=== PATIENT | female | born 1975 | race Caucasian/White ===

== ENCOUNTER 2016-09-22 14:36 | Observation (INO) | payer OTHER ==
[2016-09-22] MEDS: Sodium Chloride 0.9% 1000 ML 1,000 ML IV SCH ×2 (17:10→23:53)
[2016-09-22] MEDS: MORPHINE SULFATE 2 MG INJ IV PRN (17:10)
[2016-09-22 17:21] LABS: ALBUMIN 4.3 g/dL (3.4-5.0); ALKALINE PHOSPHATASE 60 U/L (46-116); ANION GAP 14.7 MEQ/L (5-15); BILIRUBIN,TOTAL 0.2 mg/dL (0.2-1.0); BLOOD UREA NITROGEN 11 mg/dL (9-20); CHLORIDE 105 mEq/L (98-107); Carbon Dioxide 27.9 mEq/L (21-32); Glucose 91 MG/DL (70-110); LIPASE 208 U/L (73-393); SGOT/AST 20 U/L (15-37); SGPT/ALT 18 U/L (12-78); SODIUM 144 mEq/L (136-145); Total Protein 7.7 gm/dL (6.4-8.2)
[2016-09-22 17:24] LABS: Mean Corpuscular Hemoglobin 28.6 pg (26-32); Mean Platelet Volume 9.5 fl (6-9.5); Platelet Count 295 K/mm3 (150-450); Red Blood Count 4.47 M/mm3 (4.1-5.4); Red Cell Distribution Width 12.8 % (11.5-14.0); White Blood Count 6.2 K/mm3 (4.0-10.5)
[2016-09-22] MEDS: PYRIDIUM 200 MG PO SCH (21:58)
[2016-09-22] MEDS ORDERED: NEURONTIN 300 MG PO SCH (22:00)
[2016-09-22] MEDS ORDERED: Cyclobenzaprine 10 MG PO SCH (22:00)
--- NOTE | 2016-09-22 22:24 | XRAY ---
Indication: Lower abdominal pain for 2 days. Nausea. Frequent urination. Multiple contiguous axial images obtained through the abdomen and pelvis without contrast as ordered. Comparison: February 04, 2015 Lung bases remain clear. Heart is not enlarged. Noncontrasted stomach and bowel loops appear nonobstructed. There remains moderate scattered colonic fecal debris throughout. No free fluid/air. Again previous cholecystectomy, hysterectomy, and reported appendectomy. There is stable subcentimeter urachal cyst versus urinary bladder diverticulum. Remaining liver, pancreas, spleen, adrenal glands, kidneys, ureters, bladder, and aorta appear unremarkable for noncontrast exam. Osseous structures intact. Impression: 1. Again fecal stasis without obstruction. 2. Stable tiny urachal cyst versus bladder diverticulum. 3. No new/acute intra-abdominal/pelvic abnormalities on this noncontrast exam. Comment: Preliminary interpretation was made by C. No critical discrepancy. CTDI 9.12
[2016-09-23] MEDS: MORPHINE SULFATE 2 MG INJ IV PRN (03:38)
[2016-09-23] MEDS: Sodium Chloride 0.9% 1000 ML 1,000 ML IV SCH (06:31)
[2016-09-23 07:22] VITALS: BP 114/68; PULSE 66; O2SAT 98
--- NOTE | 2016-09-23 07:49 | PCM.DS ---
Discharge Summary Date of Admission: 09/22/16 14:42 Admitting Physician: JR PASTOR Consults: Consults on Case 09/22/16 18:58 Consult Surgery ROUTINE Primary Care Provider: JAYLAN GREEN Allergies Allergies povidone-iodine [From Betadine] Allergy (Mild, Verified 09/22/16 14:53) rabeprazole sodium [From Aciphex] Allergy (Mild, Verified 10/13/15 11:23) Hives soap [From Betadine] Allergy (Mild, Verified 09/22/16 14:53) prochlorperazine edisylate [From Compazine] Allergy (Verified 10/13/15 11:23) prochlorperazine maleate [From Compazine] Allergy (Verified 10/13/15 11:23) Hospital Summary - Hospital Course Hospital Course: Chief Complaint Diagnosis ABDOMINAL PAIN Allergies Allergy/AdvReac Type Severity Reaction Status Date / Time povidone-iodine Allergy Mild Verified 09/22/16 14:53 [From Betadine] rabeprazole sodium Allergy Mild Hives Verified 10/13/15 11:23 [From Aciphex] soap [From Betadine] Allergy Mild Verified 09/22/16 14:53 prochlorperazine edisylate Allergy Verified 10/13/15 11:23 [From Compazine] prochlorperazine maleate Allergy Verified 10/13/15 11:23 [From Compazine] Vital Signs (Last 24 hours) Temp Pulse Resp BP Pulse Ox 09/23/16 07:21 97.5 F 66 18 114/68 98 09/23/16 04:00 97.9 F 78 19 122/70 99 09/23/16 00:00 97.9 F 67 18 115/67 96 09/22/16 19:49 98.3 F 82 18 136/80 99 09/22/16 14:58 98 F 91 H 18 132/79 99 Home Medications Medication Instructions Recorded Confirmed Last Taken Type Phenazopyridine HCl 200 mg PO BID 09/22/16 09/22/16 09/22/16 History Current Medications Generic Name Dose Route Start Last Admin Trade Name Freq PRN Reason Stop Dose Admin Cyclobenzaprine HCl 10 mg 09/22/16 22:00 09/22/16 21:51 Cyclobenzaprine 10 Mg PO 10/22/16 21:59 10 mg HS LINDSEY Administration Gabapentin 600 mg 09/22/16 22:00 09/22/16 21:51 Neurontin 300 Mg PO 10/22/16 21:59 600 mg HS LINDSEY Administration Sodium Chloride 1,000 mls @ 150 mls/hr 09/22/16 17:00 09/23/16 06:31 Sodium Chloride 0.9% 1000 Ml IV 10/22/16 16:59 150 mls/hr .Q6H40M LINDSEY Administration Morphine Sulfate 2 mg 09/22/16 16:56 09/23/16 03:38 Morphine Sulfate 2 Mg Inj IV 09/27/16 16:55 2 mg Q2H PRN PRN Administration PAIN Phenazopyridine HCl 200 mg 09/22/16 22:00 09/22/16 21:58 Pyridium 200 Mg PO 09/26/16 22:01 Not Given BID LINDSEY Intake & Output (Last 24 hours) 09/20/16 09/21/16 09/22/16 09/23/16 11:59 11:59 11:59 11:59 Intake Total 1577 Balance 1577 Weight 57.062 kg Laboratory Results (Last 24 hours) 09/22/16 09/22/16 09/22/16 17:00 17:00 17:00 WBC 6.2 RBC 4.47 Hgb 12.8 Hct 39.8 MCV 89.0 MCH 28.6 MCHC 32.2 RDW 12.8 Plt Count 295 MPV 9.5 Sodium 144 Potassium 4.0 Chloride 105 Carbon Dioxide 27.9 Anion Gap 14.7 BUN 11 Creatinine 0.78 Estimated GFR > 60 Glucose 91 Calcium 9.0 Total Bilirubin 0.2 AST 20 ALT 18 Alkaline Phosphatase 60 Serum Total Protein 7.7 Albumin 4.3 Amylase 69 Lipase 208 Orders (Last 24 hours) Category Date Time Status Admission/Status Order ROUTINE Care 09/22/16 14:42 Active Consult Surgery ROUTINE Cons 09/22/16 18:58 Active Regular Diet Diet 09/22/16 Dinner Completed Regular Diet Diet 09/23/16 Breakfast Active ABDOMEN AND PELVIS W/0 CONTRAS [CT] Routine Exams 09/22/16 16:58 Completed AMYLASE Routine Lab 09/22/16 17:00 Completed CBC Routine Lab 09/22/16 17:00 Completed CMP Routine Lab 09/22/16 17:00 Completed LIPASE Routine Lab 09/22/16 17:00 Completed Cyclobenzaprine HCl 10 mg [Cyclobenzaprine 10 MG] Med 09/22/16 22:00 Active 10 mg PO HS Gabapentin 300 mg [Neurontin 300 mg] Med 09/22/16 22:00 Active 600 mg PO HS Morphine Sulfate 2 mg Inj Med 09/22/16 16:56 Active 2 mg IV Q2H PRN PRN NaCl 0.9% 1000 ml [Sodium Chloride 0.9% 1000 ML] 1,000 Med 09/22/16 17:00 Active ml IV 150 mls/hr Phenazopyridine HCl 200 mg [Pyridium 200 mg] Med 09/22/16 22:00 Active 200 mg PO BID Patient Care Notes (Last 24 hours) 09/23/16 00:11 Nursing Note by Karen Chacko Dr. here to see patient. Reviewed chart, decided nothing immediate needed. Dr. Jovel was also informed that patient has an appointment with a surgeon in [place] on Oct.04 and if she needed surgery she would prefer to go there. Initialized on 09/23/16 00:11 - END OF NOTE 09/22/16 18:59 Nursing Note by [place] Brian patient facesheet and copy of ct report sent to OR as dr. jovel is in OR performing a case at the moment. Initialized on 09/22/16 18:59 - END OF NOTE 09/22/16 18:50 Nursing Note by [place] Brian dr. updated via phone of CT results. received orders to consult surgeon and make patient npo Initialized on 09/22/16 18:50 - END OF NOTE - Vitals & Intake/Output Vital Signs: Vital Signs Temperature 97.5 F 09/23/16 07:21 Pulse Rate 66 09/23/16 07:21 Respiratory Rate 18 09/23/16 07:21 Blood Pressure 114/68 09/23/16 07:21 O2 Sat by Pulse Oximetry 98 09/23/16 07:21 Intake & Output: Intake & Output 09/20/16 09/21/16 09/22/16 09/23/16 11:59 11:59 11:59 11:59 Intake Total 1577 Balance 1577 Weight 57.062 kg - Lab Result Diagrams: 09/22/16 17:00 09/22/16 17:00 Lab Results-Last 24 Hrs: Lab Results-Last 24 Hours 09/22/16 09/22/16 09/22/16 Range/Units 17:00 17:00 17:00 WBC 6.2 (4.0-10.5) K/mm3 RBC 4.47 (4.1-5.4) M/mm3 Hgb 12.8 (12.0-16.0) gm/dl Hct 39.8 (35-47) % MCV 89.0 (78-100) fl MCH 28.6 (26-32) pg MCHC 32.2 (32-36) g/dl RDW 12.8 (11.5-14.0) % Plt Count 295 (150-450) K/mm3 MPV 9.5 (6-9.5) fl Sodium 144 (136-145) mEq/L Potassium 4.0 (3.5-5.1) mEq/L Chloride 105 (98-107) mEq/L Carbon Dioxide 27.9 (21-32) mEq/L Anion Gap 14.7 (5-15) MEQ/L BUN 11 (9-20) mg/dL Creatinine 0.78 (0.55-1.30) mg/dl Estimated GFR > 60 ML/MIN Glucose 91 (70-110) MG/DL Calcium 9.0 (8.5-10.1) mg/dL Total Bilirubin 0.2 (0.2-1.0) mg/dL AST 20 (15-37) U/L ALT 18 (12-78) U/L Alkaline Phosphatase 60 (46-116) U/L Serum Total Protein 7.7 (6.4-8.2) gm/dL Albumin 4.3 (3.4-5.0) g/dL Amylase 69 (25-115) U/L Lipase 208 (73-393) U/L - Radiology Exams Ordered Rad Exams-Entire Visit: Radiology Procedures Category Date Time Status ABDOMEN AND PELVIS W/0 CONTRAS [CT] Routine Exams 09/22/16 16:58 Completed Discharge Exam General Appearance: no apparent distress, alert Neurologic Exam: alert, oriented x 3, cooperative, normal mood/affect, nml cerebellar function, sensation nml, No motor deficits Skin Exam: normal color, warm, dry Eye Exam: PERRL, EOMI, eyes nml inspection Ears, Nose, Throat Exam: normal ENT inspection, pharynx normal, moist mucous membranes Neck Exam: normal inspection, non-tender, supple, full range of motion Respiratory Exam: normal breath sounds, lungs clear, No respiratory distress Cardiovascular Exam: regular rate/rhythm, normal heart sounds Gastrointestinal/Abdomen Exam: soft, No tenderness, No mass Extremity Exam: normal inspection, normal range of motion Back Exam: normal inspection, normal range of motion, No CVA tenderness, No vertebral tenderness Pelvic Exam: deferred Rectal Exam: deferred Final Diagnosis/Problem List - Final Discharge Diagnosis/Problem (1) Lower abdominal adhesions Current Visit: Yes Status: Chronic Priority: High Assessment & Plan: Chief Complaint Diagnosis ABDOMINAL PAIN Allergies Allergy/AdvReac Type Severity Reaction Status Date / Time povidone-iodine Allergy Mild Verified 09/22/16 14:53 [From Betadine] rabeprazole sodium Allergy Mild Hives Verified 10/13/15 11:23 [From Aciphex] soap [From Betadine] Allergy Mild Verified 09/22/16 14:53 prochlorperazine edisylate Allergy Verified 10/13/15 11:23 [From Compazine] prochlorperazine maleate Allergy Verified 10/13/15 11:23 [From Compazine] Vital Signs (Last 24 hours) Temp Pulse Resp BP Pulse Ox 09/23/16 07:21 97.5 F 66 18 114/68 98 09/23/16 04:00 97.9 F 78 19 122/70 99 09/23/16 00:00 97.9 F 67 18 115/67 96 09/22/16 19:49 98.3 F 82 18 136/80 99 09/22/16 14:58 98 F 91 H 18 132/79 99 Home Medications Medication Instructions Recorded Confirmed Last Taken Type Phenazopyridine HCl 200 mg PO BID 09/22/16 09/22/16 09/22/16 History Current Medications Generic Name Dose Route Start Last Admin Trade Name Freq PRN Reason Stop Dose Admin Cyclobenzaprine HCl 10 mg 09/22/16 22:00 09/22/16 21:51 Cyclobenzaprine 10 Mg PO 10/22/16 21:59 10 mg HS LINDSEY Administration Gabapentin 600 mg 09/22/16 22:00 09/22/16 21:51 Neurontin 300 Mg PO 10/22/16 21:59 600 mg HS LINDSEY Administration Sodium Chloride 1,000 mls @ 150 mls/hr 09/22/16 17:00 09/23/16 06:31 Sodium Chloride 0.9% 1000 Ml IV 10/22/16 16:59 150 mls/hr .Q6H40M LINDSEY Administration Morphine Sulfate 2 mg 09/22/16 16:56 09/23/16 03:38 Morphine Sulfate 2 Mg Inj IV 09/27/16 16:55 2 mg Q2H PRN PRN Administration PAIN Phenazopyridine HCl 200 mg 09/22/16 22:00 09/22/16 21:58 Pyridium 200 Mg PO 09/26/16 22:01 Not Given BID LINDSEY Intake & Output (Last 24 hours) 09/20/16 09/21/16 09/22/16 09/23/16 11:59 11:59 11:59 11:59 Intake Total 1577 Balance 1577 Weight 57.062 kg Laboratory Results (Last 24 hours) 09/22/16 09/22/16 09/22/16 17:00 17:00 17:00 WBC 6.2 RBC 4.47 Hgb 12.8 Hct 39.8 MCV 89.0 MCH 28.6 MCHC 32.2 RDW 12.8 Plt Count 295 MPV 9.5 Sodium 144 Potassium 4.0 Chloride 105 Carbon Dioxide 27.9 Anion Gap 14.7 BUN 11 Creatinine 0.78 Estimated GFR > 60 Glucose 91 Calcium 9.0 Total Bilirubin 0.2 AST 20 ALT 18 Alkaline Phosphatase 60 Serum Total Protein 7.7 Albumin 4.3 Amylase 69 Lipase 208 Orders (Last 24 hours) Category Date Time Status Admission/Status Order ROUTINE Care 09/22/16 14:42 Active Consult Surgery ROUTINE Cons 09/22/16 18:58 Active Regular Diet Diet 09/22/16 Dinner Completed Regular Diet Diet 09/23/16 Breakfast Active ABDOMEN AND PELVIS W/0 CONTRAS [CT] Routine Exams 09/22/16 16:58 Completed AMYLASE Routine Lab 09/22/16 17:00 Completed CBC Routine Lab 09/22/16 17:00 Completed CMP Routine Lab 09/22/16 17:00 Completed LIPASE Routine Lab 09/22/16 17:00 Completed Cyclobenzaprine HCl 10 mg [Cyclobenzaprine 10 MG] Med 09/22/16 22:00 Active 10 mg PO HS Gabapentin 300 mg [Neurontin 300 mg] Med 09/22/16 22:00 Active 600 mg PO HS Morphine Sulfate 2 mg Inj Med 09/22/16 16:56 Active 2 mg IV Q2H PRN PRN NaCl 0.9% 1000 ml [Sodium Chloride 0.9% 1000 ML] 1,000 Med 09/22/16 17:00 Active ml IV 150 mls/hr Phenazopyridine HCl 200 mg [Pyridium 200 mg] Med 09/22/16 22:00 Active 200 mg PO BID Patient Care Notes (Last 24 hours) 09/23/16 00:11 Nursing Note by Karen Chacko Dr. here to see patient. Reviewed chart, decided nothing immediate needed. Dr. Jovel was also informed that patient has an appointment with a surgeon in [place] on Oct.04 and if she needed surgery she would prefer to go there. Initialized on 09/23/16 00:11 - END OF NOTE 09/22/16 18:59 Nursing Note by India Brian patient facesheet and copy of ct report sent to OR as dr. jovel is in OR performing a case at the moment. Initialized on 09/22/16 18:59 - END OF NOTE 09/22/16 18:50 Nursing Note by [place] Brian dr. updated via phone of CT results. received orders to consult surgeon and make patient npo Initialized on 09/22/16 18:50 - END OF NOTE Patient pain is improved with IV morphine. Patient is scheduled for laparoscopic intervention by the surgeon in [place] tenderness from today. Has CAT scan of the abdomen is negative. Patient will be discharged today with oxymorphone 5 mg 3 times a day when necessary for pain and follow-up with her surgeon as per her appointment. (2) Abdominal pain Current Visit: Yes Status: Resolved - Discharge Discharge Date: 09/23/16 Disposition: Home, Self-Care Condition: Stable Prescriptions: New Oxymorphone HCl 5 mg PO TID #20 tablet Continue Esomeprazole Magnesium [Nexium] 40 mg PO DAILY Cyclobenzaprine HCl 10 mg [Cyclobenzaprine 10 MG] 10 mg PO HS Gabapentin [Neurontin] 600 mg PO HS Phenazopyridine HCl 200 mg PO BID Follow up with: JAYLAN GREEN MD [Primary Care Provider] - 1 Week
[2016-09-23] MEDS: PYRIDIUM 200 MG PO SCH (08:37)
[2016-09-23] MEDS ORDERED: NON-FORMULARY ITEM (Esomeprazole Magnesium [Nexium] 40 MG) PO SCH (10:00)
[2016-09-23] MEDS ORDERED: Protonix 40MG Tablet PO SCH (10:00)
== END 2016-09-23 12:15 | disposition home or self-care (01) ==
LOC: MED SURG 14:42
PROVIDERS: ADMIT General Practice; ATTEND General Practice
DX: K66.0 Peritoneal adhesions (postprocedural) (postinfection) (principal); K21.9 Gastro-esophageal reflux disease without esophagitis; M41.9 Scoliosis, unspecified
CPT/HCPCS: 36415; 74176; 80053; 82150; 83690; 85027; G0378; J2270

== ENCOUNTER 2017-05-14 09:51 | Emergency (ER) | payer OTHER ==
--- NOTE | 2017-05-14 11:26 | ERPHSYRPT ---
- History of Present Illness Time Seen by Provider: 05/14/17 11:21 Source: patient Exam Limitations: no limitations Patient Subjective Stated Complaint: pt here for numbness to both legs that started today, states they feel heavy, pressure to void, and pain to lower abd which has been going on for 5 months now. and pt states has surgery soon for mass to left side, Triage Nursing Assessment: pt walked in crying, resp easy, skin w/d pink. abd soft, moves all ext well Physician History: The patient is a 42-year-old female who is a poor historian. She comes in complaining of lower abdominal pain for 6 months. She states that she had heavy legs yesterday. She states that they were numb as well. She also states that she can feel her legs. She has been to several ERs to investigate her various problems. She went to [facility] and they told her the abdominal pain was due to adhesions as result of the abdominal surgery she's had. She went to her GI doctor in [place] who told her she did not have adhesions. She then went to [facility] in [place] who said that she had likely adhesions. The CT scan in [place] showed moderate to large volume of colonic stool as well as a circumscribed nodular soft tissue density near surgical clips in the right hemipelvis that may be postoperative although the differential diagnosis included lymphadenopathy and malignancy. This CT report was transcribed by Dr. Koo. The patient has seen her local doctor. She is due to see a surgeon for possible adhesions on May 21. Her past medical history significant for hysterectomy, cholecystectomy, chronic abdominal pain. Timing/Duration: other (6 months) Severity: mild Modifying Factors: Improves With: nothing Associated Symptoms: abdominal pain Allergies/Adverse Reactions: povidone-iodine [From Betadine] Allergy (Mild, Verified 05/14/17 10:13) rabeprazole sodium [From Aciphex] Allergy (Mild, Verified 05/14/17 10:13) Hives soap [From Betadine] Allergy (Mild, Verified 05/14/17 10:13) prochlorperazine edisylate [From Compazine] Allergy (Verified 05/14/17 10:13) prochlorperazine maleate [From Compazine] Allergy (Verified 05/14/17 10:13) Home Medications: Esomeprazole Magnesium [Nexium] 40 mg PO DAILY 04/20/14 [History] Cyclobenzaprine HCl 10 mg [Cyclobenzaprine 10 MG] 10 mg PO HS 08/16/14 [ History] Gabapentin [Neurontin] 800 mg PO HS 01/14/15 [History] Hx Tetanus, Diphtheria Vaccination/Date Given: No Hx Influenza Vaccination/Date Given: No Hx Pneumococcal Vaccination/Date Given: No Immunizations Up to Date: Yes - Review of Systems Constitutional: No Fever, No Chills Eyes: No Symptoms Ears, Nose, & Throat: No Symptoms Respiratory: No Cough, No Dyspnea Cardiac: No Chest Pain, No Edema, No Syncope Abdominal/Gastrointestinal: Abdominal Pain Genitourinary Symptoms: No Dysuria Musculoskeletal: No Back Pain, No Neck Pain Skin: No Rash Neurological: Parasthesia Psychological: No Symptoms Endocrine: No Symptoms Hematologic/Lymphatic: No Symptoms Immunological/Allergic: No Symptoms All Other Systems: Reviewed and Negative - Past Medical History Pertinent Past Medical History: Yes Neurological History: Migraines ENT History: Other Cardiac History: No Pertinent History Respiratory History: Bronchitis Endocrine Medical History: No Pertinent History Musculoskeletal History: Arthritis, Fibromyalgia, Other GI Medical History: GERD History: No Pertinent History Psycho-Social History: No Pertinent History Female Reproductive Disorders: No Pertinent History Other Medical History: ESOPHAGUS NEEDS DILATED EVERY ONCE IN AWHILE, , LORDOSIS , SCOLIOSIS, - Past Surgical History Past Surgical History: Yes Neuro Surgical History: No Pertinent History Cardiac: No Pertinent History Respiratory: No Pertinent History Gastrointestinal: Cholecystectomy, Colon Resection Genitourinary: No Pertinent History Musculoskeletal: Orthopedic Surgery Female Surgical History: Section, Hysterectomy Other Surgical History: esophageal dilitation, rotator cuff repair - Social History Smoking Status: Never smoker Exposure to second hand smoke: No Drug Use: none Patient Lives Alone: No Significant Family History: other (immune diseases such as lupus,etc.) - Female History Hx Last Menstrual Period: hyster Hx Now: No - Nursing Vital Signs Nursing Vital Signs: Initial Vital Signs Temperature 98.6 F 05/14/17 10:08 Pulse Rate 86 05/14/17 10:08 Respiratory Rate 18 05/14/17 10:08 Blood Pressure 176/107 05/14/17 10:08 O2 Sat by Pulse Oximetry 98 05/14/17 10:08 Pain Scale Pain Intensity 5 - Physical Exam General Appearance: no apparent distress, alert Eye Exam: PERRL/EOMI, eyes nml inspection Ears, Nose, Throat Exam: normal ENT inspection, TMs normal, pharynx normal, moist mucous membranes Neck Exam: normal inspection, non-tender, supple, full range of motion Respiratory Exam: normal breath sounds, lungs clear, No respiratory distress Cardiovascular Exam: regular rate/rhythm, normal heart sounds, normal peripheral pulses Gastrointestinal/Abdomen Exam: soft, normal bowel sounds Pelvic Exam: not done Rectal Exam: not done Back Exam: normal inspection, normal range of motion, No CVA tenderness, No vertebral tenderness Extremity Exam: normal inspection, normal range of motion, pelvis stable Neurologic Exam: alert, oriented x 3, cooperative, normal mood/affect, nml cerebellar function, nml station & gait, sensation nml, No motor deficits Skin Exam: normal color, warm, dry, No rash Lymphatic Exam: No adenopathy SpO2 Interpretation: normal SpO2: 100 Oxygen Delivery: Room Air - Radiology Exams Abdomen X-ray Interpretation: Negative (per DR Cano.) Ordered Tests: Active Orders 24 hr Category Date Time Status KUB Stat Exams 05/14/17 11:28 Completed CBC W DIFF Stat Lab 05/14/17 11:38 Completed CMP Stat Lab 05/14/17 11:38 Completed UA W/RFX UR CULTURE Stat Lab 05/14/17 12:20 Completed Lab/Rad Data: Laboratory Result Diagrams 05/14/17 11:38 05/14/17 11:38 Laboratory Results 05/14/17 05/14/17 05/14/17 Range/Units 12:20 11:38 11:38 WBC 6.6 (4.0-10.5) K/mm3 RBC 4.43 (4.1-5.4) M/mm3 Hgb 12.9 (12.0-16.0) gm/dl Hct 39.2 (35-47) % MCV 88.5 (78-100) fl MCH 29.1 (26-32) pg MCHC 32.9 (32-36) g/dl RDW 12.9 (11.5-14.0) % Plt Count 297 (150-450) K/mm3 MPV 8.9 (6-9.5) fl Gran % 68.9 H (36.0-66.0) % Lymphocytes % 21.2 L (24.0-44.0) % Monocytes % 8.9 (0.0-12.0) % Eosinophils % 0.8 (0.00-5.0) % Basophils % 0.2 (0.0-0.4) % Basophils # 0.01 (0-0.4) Sodium 144 (136-145) mEq/L Potassium 3.9 (3.5-5.1) mEq/L Chloride 107 (98-107) mEq/L Carbon Dioxide 26.6 (21-32) mEq/L Anion Gap 14.2 (5-15) MEQ/L BUN 7 L (9-20) mg/dL Creatinine 0.75 (0.55-1.30) mg/dl Estimated GFR > 60 ML/MIN Glucose 94 (70-110) MG/DL Calcium 9.1 (8.5-10.1) mg/dL Total Bilirubin 0.40 (0.2-1.0) mg/dL AST 13 L (15-37) U/L ALT 29 (12-78) U/L Alkaline Phosphatase 66 (46-116) U/L Serum Total Protein 7.8 (6.4-8.2) gm/dL Albumin 4.7 (3.4-5.0) g/dL Ur Collection Type CLEAN CATCH Urine Color YELLOW (YELLOW) Urine Appearance CLEAR (CLEAR) Urine pH 5.0 (5-6) Ur Specific [place] 1.020 (1.005-1.025) Urine Protein NEGATIVE (Negative) Urine Ketones NEGATIVE (NEGATIVE) Urine Blood NEGATIVE (0-5) Mickey/ul Urine Nitrite NEGATIVE (NEGATIVE) Urine Bilirubin NEGATIVE (NEGATIVE) Urine Urobilinogen NORMAL (0-1) mg/dL Ur Leukocyte Esterase NEGATIVE (NEGATIVE) Urine Glucose NEGATIVE (NEGATIVE) mg/dL Specimen Received 05-14 1200 - Progress Progress: unchanged Counseled pt/family regarding: lab results, diagnosis, need for follow-up, rad results - Departure Time of Disposition: 12:24 Departure Disposition: Home Clinical Impression: Chronic abdominal pain Condition: Stable Critical Care Time: No Referrals: JAYLAN GREEN MD [Primary Care Provider] - Additional Instructions: You have chronic abdominal pain. Your laboratory and imaging studies were all normal. Take Tylenol and ibuprofen as needed for pain. Follow-up as scheduled with the surgeon, Dr. Jovel.
[2017-05-14 11:56] LABS: BASOPHIL % 0.2 % (0.0-0.4); Eosinophil % 0.8 % (0.00-5.0); Granulocytes % 68.9 % (36.0-66.0); Lymphocytes % 21.2 % (24.0-44.0); Mean Cell Volume 88.5 fl (78-100); Mean Corpuscular Hemoglobin 29.1 pg (26-32); Mean Platelet Volume 8.9 fl (6-9.5); Monocytes % 8.9 % (0.0-12.0); Platelet Count 297 K/mm3 (150-450); Red Blood Count 4.43 M/mm3 (4.1-5.4); Red Cell Distribution Width 12.9 % (11.5-14.0); White Blood Count 6.6 K/mm3 (4.0-10.5)
--- NOTE | 2017-05-14 12:12 | XRAY ---
Indication: Lower abdominal pain. Comparison: July 16, 2013. KUB nonacute and nonobstructed again with previous cholecystectomy. New pelvic surgical clips. Solid organs and osseous structures unremarkable. Impression: Negative KUB.
[2017-05-14 12:14] LABS: ALBUMIN 4.7 g/dL (3.4-5.0); ALKALINE PHOSPHATASE 66 U/L (46-116); ANION GAP 14.2 MEQ/L (5-15); BLOOD UREA NITROGEN 7 mg/dL (9-20); CHLORIDE 107 mEq/L (98-107); Carbon Dioxide 26.6 mEq/L (21-32); Glucose 94 MG/DL (70-110); Potassium 3.9 mEq/L (3.5-5.1); SGOT/AST 13 U/L (15-37); SGPT/ALT 29 U/L (12-78); SODIUM 144 mEq/L (136-145); Total Protein 7.8 gm/dL (6.4-8.2)
[2017-05-14 12:20] LABS: ADD URINE CULTURE? NO (NO); Bilirubin NEGATIVE (NEGATIVE); Blood NEGATIVE Ery/ul (0-5); COMPLETE URINE MICROSCOPIC? NO; Collection Type CLEAN CATCH; Glucose NEGATIVE (NEGATIVE); Leukocyte Esterase NEGATIVE (NEGATIVE)
[2017-05-14 12:56] VITALS: BP 160/90; PULSE 90; O2SAT 96
== END 2017-05-14 12:56 | disposition home or self-care (01) ==
LOC: ED 09:51
DX: R10.9 Unspecified abdominal pain (principal); G89.29 Other chronic pain; R20.0 Anesthesia of skin; Z79.899 Other long term (current) drug therapy
CPT/HCPCS: 36415; 74000; 80053; 81002; 85025; 99284

== ENCOUNTER 2017-06-06 07:18 | Day surgery (SDC) | payer OTHER ==
[~2017-06-06 07:18] MED LIST: Lactated Ringers 1,000 ML IV SCH
[2017-06-06] MEDS ORDERED: DIPRIVAN 200 MG/20 ML IV ONE (07:19)
[2017-06-06] MEDS ORDERED: Versed 2 MG/2 ML Injection IV ONE (07:19)
[2017-06-06] MEDS ORDERED: Lactated Ringers 1,000 ML IV ONE ×3 (08:10→10:50)
[2017-06-06] MEDS ORDERED: MEFOXIN 2 GM PREMIX** 2 GM/50 ML ML IV ONE (08:38)
[2017-06-06 08:59] LABS: ALBUMIN 4.6 g/dL (3.4-5.0); ALKALINE PHOSPHATASE 67 U/L (46-116); ANION GAP 13.1 MEQ/L (5-15); BLOOD UREA NITROGEN 8 mg/dL (9-20); CHLORIDE 105 mEq/L (98-107); Carbon Dioxide 28.8 mEq/L (21-32); Direct Bilirubin 0.09 MG/DL (0.0-0.2); Glucose 93 MG/DL (70-110); LIPASE 143 U/L (73-393); SGOT/AST 16 U/L (15-37); SGPT/ALT 16 U/L (12-78); SODIUM 143 mEq/L (136-145); Total Protein 7.9 gm/dL (6.4-8.2)
[2017-06-06 09:00] LABS: Mean Cell Volume 89.4 fl (78-100); Mean Platelet Volume 9.1 fl (6-9.5); Platelet Count 333 K/mm3 (150-450); Red Blood Count 4.62 M/mm3 (4.1-5.4); Red Cell Distribution Width 13.1 % (11.5-14.0); White Blood Count 5.5 K/mm3 (4.0-10.5)
[2017-06-06 12:33] VITALS: O2SAT 100
[2017-06-06 12:34] VITALS: BP 134/84; PULSE 75
--- NOTE | 2017-06-07 08:06 | OP ---
PROCEDURE DATE/TIME: 06/06/2017 1025 PREOPERATIVE DIAGNOSES: 1) Abdominal pain. 2) Weight loss. POSTOPERATIVE DIAGNOSES: 1) Gastric polyps. 2) Mild gastritis. 3) Trace hiatal hernia. 4) Diverticulosis. PROCEDURES: 1) EGD with biopsy. 2) Colonoscopy. PROCEDURE PERFORMED BY: Vanda Jovel M.D. ANESTHESIA: MAC. ESTIMATED BLOOD LOSS: Minimal. COMPLICATIONS: None. SPECIMENS: 1) Antral biopsy. 2) Gastric polyp biopsy. HISTORY: This is a 42 year-old female who presents for EGD and colonoscopy due to symptoms of abdominal pain and weight loss. She has had significant pelvic surgery in the past including hysterectomy and unilateral salpingo-oophorectomy which the patient states was intended to be bilateral. However, she had an exploratory surgery and ovarian tissue was found on the right side so she had this resected as well. Since then she has continued to have abdominal pain. She has also lost weight and due to all these symptoms she was recommended for EGD and colonoscopy and so she was referred for consultation. All risks, benefits, alternatives regarding these procedures have been discussed with the patient in detail and she understands, agreed and would like to proceed. I did see the patient preoperatively as well. We reviewed her H&P. We also reviewed her CT scan results which she will need another CT scan to follow a small right seroma versus cyst lesion but we will start with the scope to see if there is anything from a GI standpoint that can improve her pain. The patient agrees. DESCRIPTION OF PROCEDURE: She was taken for the procedure. The patient was laid in the left lateral decubitus position. A complete time out was performed. MAC anesthesia introduced. The scope was then introduced into the mouth, oropharynx carefully into the esophagus, stomach and duodenum. The duodenum is normal. In the stomach there is mild gastritis. There are a few very small gastric polyps and these all appeared benign and very minor. On retroflex view there is a very tiny almost physiologic hiatal hernia this is very mild. We did take antral biopsies and then biopsies of the gastric polyp and sent these to pathology this was done with cold forceps. All sites were hemostatic. The scope was then carefully withdrawn. The esophagus looked normal. The patient was repositioned for colonoscopy. First a rectal exam was done and then the scope was inserted and carefully guided to the level of the cecum. The patient did have some tortuosity in the sigmoid colon and descending colon. She did have mild diverticulosis. I did not find any other issues in the colon. The ileocecal valve and appendiceal orifice was visualized. The scope was then carefully withdrawn. The patient did have some liquid stool throughout her colon which was suctioned and irrigated as thoroughly as possible. A smaller flat lesion could be missed due to the prep and then scope was completely removed. The patient tolerated the procedure very well. There were no immediate complications. At this time our plan is to start her on Protonix due to the mild gastritis. We will repeat the EGD in approximately one year since she had gastric polyp. We will repeat her colonoscopy in approximately five years sooner should she have new symptoms and we will also plan to continue to work up her abdominal pain as well as repeat her CT scan and consider a pelvic ultrasound which we will discuss at her next appointment.
== END 2017-06-06 12:35 | disposition home or self-care (01) ==
LOC: SDC 07:18
PROVIDERS: ATTEND Surgery
PROC: 0DB68ZX Excision of Stomach, Via Natural or Artificial Opening Endoscopic, Diagnostic (ICD-10-PCS; principal; 2017-06-06)
PROC: 0DJD8ZZ Inspection of Lower Intestinal Tract, Via Natural or Artificial Opening Endoscopic (ICD-10-PCS; 2017-06-06)
DX: K31.7 Polyp of stomach and duodenum (principal); R63.4 Abnormal weight loss; K44.9 Diaphragmatic hernia without obstruction or gangrene; K57.90 Diverticulosis of intestine, part unspecified, without perforation or abscess without bleeding; K29.70 Gastritis, unspecified, without bleeding
CPT/HCPCS: 00740; 00810; 36415; 80048; 80076; 82150; 83690; 85027; 88305; J0694; J2250; J2704

== ENCOUNTER 2017-07-26 20:16 | Emergency (ER) | payer OTHER ==
[2017-07-26] MEDS ORDERED: Sodium Chloride 0.9% 1000 ML 1,000 ML IV STA (20:58)
[2017-07-26] MEDS ORDERED: PROVENTIL 2.5 MG/3 ML NEB IH ONE ×2 (21:02→21:12)
[2017-07-26] MEDS ORDERED: TYLENOL 325 MG PO ONE (21:02)
[2017-07-26] MEDS ORDERED: Sodium Chloride 0.9% 1000 ML 1,000 ML ONE (21:05)
[2017-07-26] MEDS ORDERED: TYLENOL 325 MG ONE (21:05)
[2017-07-26 21:07] LABS: BASOPHIL % 0.4 % (0.0-0.4); Eosinophil % 2.4 % (0.00-5.0); Granulocytes % 47.3 % (36.0-66.0); Lymphocytes % 40.1 % (24.0-44.0); Mean Platelet Volume 9.1 fl (6-9.5); Monocytes % 9.8 % (0.0-12.0); Platelet Count 345 K/mm3 (150-450); Red Blood Count 4.27 M/mm3 (4.1-5.4); Red Cell Distribution Width 12.8 % (11.5-14.0)
--- NOTE | 2017-07-26 21:08 | ERPHSYRPT ---
- History of Present Illness Time Seen by Provider: 07/26/17 20:24 Source: patient, family (boyfriend) Patient Subjective Stated Complaint: CP STARTING ON SUNDAY. HAS BEEN BEING TREATED FOR BRONCHITIS.. BEEN ON ANTIBIOTIC Triage Nursing Assessment: ALERT AND ORIENTD WITH C/O CVP SINCE SUNDAY.. HAS BEEN ON ANTIBIOTIC. LUNGS CLEAR PAIN WITH DEEP INSPIRATION AND PALPATION TO MIDCHEST. DENIES SWELLING. Physician History: CC: left chest pain Hx: 42 y/o patient with hx of GI issues. She has been coughing since last week. Now left chest pain. Worse with breath or touch or movement. Still having fevers. No hx of venous thromboembolic disease. No hx of heart disease. She is taking amoxil. Pain moderate. Timing/Duration: week(s) (1) Severity: moderate Allergies/Adverse Reactions: povidone-iodine [From Betadine] Allergy (Mild, Verified 07/26/17 20:29) rabeprazole sodium [From Aciphex] Allergy (Mild, Verified 07/26/17 20:29) Hives soap [From Betadine] Allergy (Mild, Verified 07/26/17 20:29) prochlorperazine edisylate [From Compazine] Allergy (Verified 07/26/17 20:29) ibuprofen Adverse Reaction (Verified 07/26/17 20:59) DOES NOT TAKE DUE TO STOMACHE PROBLEMS Home Medications: Cyclobenzaprine HCl 10 mg [Cyclobenzaprine 10 MG] 10 mg PO HS 08/16/14 [ History] Gabapentin [Neurontin] 800 mg PO HS 01/14/15 [History] Cyclobenzaprine HCl [Flexeril] 5 mg PO DAILY 06/04/17 [History] Hx Tetanus, Diphtheria Vaccination/Date Given: No Hx Influenza Vaccination/Date Given: No Hx Pneumococcal Vaccination/Date Given: No Immunizations Up to Date: Yes - Review of Systems Constitutional: Fever, Chills, Fatigue, Malaise Eyes: No Symptoms Ears, Nose, & Throat: No Symptoms Respiratory: Cough, No Dyspnea Cardiac: Chest Pain (left), No Edema Abdominal/Gastrointestinal: No Nausea, No Vomiting, No Diarrhea Skin: No Rash Neurological: No Headache All Other Systems: Reviewed and Negative - Past Medical History Pertinent Past Medical History: Yes Neurological History: Migraines ENT History: Other Cardiac History: No Pertinent History Respiratory History: No Pertinent History Endocrine Medical History: No Pertinent History Musculoskeletal History: Arthritis, Fibromyalgia, Other GI Medical History: GERD History: No Pertinent History Psycho-Social History: No Pertinent History Female Reproductive Disorders: No Pertinent History Other Medical History: ESOPHAGUS NEEDS DILATED EVERY ONCE IN AWHILE, , LORDOSIS , SCOLIOSIS,. Unknown GI issue planning [facility] - Past Surgical History Past Surgical History: Yes Neuro Surgical History: No Pertinent History Cardiac: No Pertinent History Respiratory: No Pertinent History Gastrointestinal: Cholecystectomy, Colon Resection Genitourinary: No Pertinent History Musculoskeletal: Orthopedic Surgery Female Surgical History: Section, Hysterectomy Other Surgical History: esophageal dilitation, rotator cuff repair - Social History Smoking Status: Never smoker Exposure to second hand smoke: No Drug Use: none Patient Lives Alone: No Significant Family History: other (immune diseases such as lupus,etc.) - Female History Hx Now: No - Nursing Vital Signs Nursing Vital Signs: Initial Vital Signs Temperature 97.8 F 07/26/17 20:22 Pulse Rate 70 07/26/17 20:22 Respiratory Rate 20 07/26/17 20:22 Blood Pressure 146/94 07/26/17 20:22 O2 Sat by Pulse Oximetry 97 07/26/17 20:22 Pain Scale Pain Intensity 8 - Physical Exam General Appearance: alert Eye Exam: PERRL/EOMI Ears, Nose, Throat Exam: normal ENT inspection, moist mucous membranes Neck Exam: normal inspection, non-tender, supple Respiratory Exam: crackles/rales (faint left lower) Cardiovascular Exam: regular rate/rhythm Gastrointestinal/Abdomen Exam: soft, No tenderness, No distention, No mass, No guarding Back Exam: normal inspection Extremity Exam: normal inspection, normal range of motion Neurologic Exam: alert, oriented x 3, cooperative, managed care director II-XII nml as tested, sensation nml, No motor deficits Skin Exam: warm, dry, No rash SpO2 Interpretation: normal SpO2: 98 Oxygen Delivery: Room Air - Course Nursing assessment & vital signs reviewed: Yes EKG Interpreted by Me: RATE (70), Sinus Rhythm, NORMAL AXIS, NORMAL INTERVALS ( QTc 431), NORMAL QRS, NORMAL ST-T - Radiology Exams cxr X-ray Interpretation: Interpreted by me, Negative, No Pneumonia, No Pneumothorax Ordered Tests: Active Orders 24 hr Category Date Time Status Commercial Journeyman Electrician STAT Care 07/26/17 21:01 Active EKG-ER Only STAT Care 07/26/17 20:58 Active IV Insertion STAT Care 07/26/17 20:58 Active Pulse Oximetry (ED) STAT Care 07/26/17 20:58 Active CHEST 2 VIEWS (PA AND LAT) Stat Exams 07/26/17 21:01 Taken CBC W DIFF Stat Lab 07/26/17 20:15 Completed CMP Stat Lab 07/26/17 20:15 Completed D-DIMER QUANTITATION Stat Lab 07/26/17 20:15 Completed TROPONIN Q3H Lab 07/26/17 20:15 Completed TROPONIN Q3H Lab 07/27/17 00:15 Ordered TROPONIN Q3H Lab 07/27/17 03:15 Ordered TROPONIN Q3H Lab 07/27/17 06:15 Ordered TROPONIN Q3H Lab 07/27/17 09:15 Ordered Respiratory Nebulizer STAT RT 07/26/17 21:02 Completed Medication Summary Generic Name Dose Route Start Last Admin Trade Name Freq PRN Reason Stop Dose Admin Sodium Chloride 1,000 mls @ 999 mls/hr 07/26/17 20:58 07/26/17 21:11 Sodium Chloride 0.9% 1000 Ml IV 07/26/17 21:58 999 mls/hr .Q1H1M STA Administration Discontinued Medications Generic Name Dose Route Start Last Admin Trade Name Freq PRN Reason Stop Dose Admin Acetaminophen 650 mg 07/26/17 21:02 07/26/17 21:12 Tylenol 325 Mg PO 07/26/17 21:03 650 mg STAT ONE Administration Acetaminophen Confirm 07/26/17 21:05 Tylenol 325 Mg Administered 07/26/17 21:06 Dose 650 mg .ROUTE .STK-MED ONE Albuterol Sulfate 2.5 mg 07/26/17 21:02 07/26/17 21:24 Proventil 2.5 Mg/3 Ml Neb IH 07/26/17 21:03 2.5 mg STAT ONE Administration Albuterol Sulfate Confirm 07/26/17 21:12 Proventil 2.5 Mg/3 Ml Neb Administered 07/26/17 21:13 Dose 2.5 mg IH .STK-MED ONE Sodium Chloride Confirm 07/26/17 21:05 Sodium Chloride 0.9% 1000 Ml Administered 07/26/17 21:06 Dose 1,000 mls @ ud .ROUTE .STK-MED ONE Lab/Rad Data: Laboratory Result Diagrams 07/26/17 20:15 07/26/17 20:15 Laboratory Results 07/26/17 07/26/17 07/26/17 Range/Units 20:15 20:15 20:15 WBC (4.0-10.5) K/mm3 RBC (4.1-5.4) M/mm3 Hgb (12.0-16.0) gm/dl Hct (35-47) % MCV (78-100) fl MCH (26-32) pg MCHC (32-36) g/dl RDW (11.5-14.0) % Plt Count (150-450) K/mm3 MPV (6-9.5) fl Gran % (36.0-66.0) % Lymphocytes % (24.0-44.0) % Monocytes % (0.0-12.0) % Eosinophils % (0.00-5.0) % Basophils % (0.0-0.4) % Basophils # (0-0.4) D-Dimer 519.08 H* (0-500) ng/mL Sodium 142 (136-145) mEq/L Potassium 3.5 (3.5-5.1) mEq/L Chloride 104 (98-107) mEq/L Carbon Dioxide 28.9 (21-32) mEq/L Anion Gap 12.1 (5-15) MEQ/L BUN 10 (9-20) mg/dL Creatinine 0.90 (0.55-1.30) mg/dl Estimated GFR > 60 ML/MIN Glucose 105 (70-110) MG/DL Calcium 8.9 (8.5-10.1) mg/dL Total Bilirubin 0.20 (0.2-1.0) mg/dL AST 15 (15-37) U/L ALT 18 (12-78) U/L Alkaline Phosphatase 68 (46-116) U/L Troponin I < 0.017 (0.000-0.056) ng/ml Serum Total Protein 7.8 (6.4-8.2) gm/dL Albumin 4.2 (3.4-5.0) g/dL 07/26/17 Range/Units 20:15 WBC 8.0 (4.0-10.5) K/mm3 RBC 4.27 (4.1-5.4) M/mm3 Hgb 12.4 (12.0-16.0) gm/dl Hct 38.0 (35-47) % MCV 89.0 (78-100) fl MCH 29.0 (26-32) pg MCHC 32.6 (32-36) g/dl RDW 12.8 (11.5-14.0) % Plt Count 345 (150-450) K/mm3 MPV 9.1 (6-9.5) fl Gran % 47.3 (36.0-66.0) % Lymphocytes % 40.1 (24.0-44.0) % Monocytes % 9.8 (0.0-12.0) % Eosinophils % 2.4 (0.00-5.0) % Basophils % 0.4 (0.0-0.4) % Basophils # 0.03 (0-0.4) D-Dimer (0-500) ng/mL Sodium (136-145) mEq/L Potassium (3.5-5.1) mEq/L Chloride (98-107) mEq/L Carbon Dioxide (21-32) mEq/L Anion Gap (5-15) MEQ/L BUN (9-20) mg/dL Creatinine (0.55-1.30) mg/dl Estimated GFR ML/MIN Glucose (70-110) MG/DL Calcium (8.5-10.1) mg/dL Total Bilirubin (0.2-1.0) mg/dL AST (15-37) U/L ALT (12-78) U/L Alkaline Phosphatase (46-116) U/L Troponin I (0.000-0.056) ng/ml Serum Total Protein (6.4-8.2) gm/dL Albumin (3.4-5.0) g/dL - Progress Progress Note: 07/26/17 21:56 Pt stable. Still some chest pain. D-dimer minimally elevated. Pain is atypical for cardiac. Offered 3 hour troponin. Offered CTA to rule out PE but she has had a lot of radiation and declines at this time. Neb helped. Rx for tussionex and albuterol given. Advised to continue amoxil and follow up with Dr Green/Ruben Eastman. Counseled pt/family regarding: lab results, diagnosis, need for follow-up, rad results - Departure Time of Disposition: 21:57 Departure Disposition: Home Clinical Impression: pleuritic left chest pain, Acute bronchitis Condition: Stable Critical Care Time: No Referrals: JAYLAN GREEN MD [Primary Care Provider] - Instructions: Chest Pain, Bronchitis Additional Instructions: Rx tussionex Rx albuterol MDI Follow up with Dr Green/Jaren Continue amoxil Return for trouble breathing or concerns. Prescriptions: Hydrocodone/Chlorphen P-Stirex [Tussionex Pennkinetic Susp] 5 ml PO Q12H PRN PRN #50 [id number] PRN Reason: cough/congestion Albuterol Sulfate [Albuterol Sulfate Hfa] 2 puff IH Q4-6HPRN PRN #1 [id number] PRN Reason: cough or wheeze
[2017-07-26 21:17] LABS: ALBUMIN 4.2 g/dL (3.4-5.0); ALKALINE PHOSPHATASE 68 U/L (46-116); ANION GAP 12.1 MEQ/L (5-15); BLOOD UREA NITROGEN 10 mg/dL (9-20); CHLORIDE 104 mEq/L (98-107); Carbon Dioxide 28.9 mEq/L (21-32); Glucose 105 MG/DL (70-110); Potassium 3.5 mEq/L (3.5-5.1); SGOT/AST 15 U/L (15-37); SGPT/ALT 18 U/L (12-78); SODIUM 142 mEq/L (136-145); Total Protein 7.8 gm/dL (6.4-8.2)
[2017-07-26 22:11] VITALS: BP 144/90; PULSE 76; O2SAT 100
--- NOTE | 2017-07-27 09:21 | XRAY ---
Indication: Cough and left-sided chest pain. Comparison: October 13, 2015. PA/lateral chest again demonstrates normal heart, lungs, and bony thorax with a few incidental calcified granulomas.
== END 2017-07-26 22:13 | disposition home or self-care (01) ==
LOC: ED 20:16
DX: R07.89 Other chest pain (principal); J20.9 Acute bronchitis, unspecified; R50.9 Fever, unspecified
CPT/HCPCS: 36000; 36415; 71020; 80053; 84484; 85025; 85379; 93005; 93041; 94640; 96360; 99284; A9270-GY

== ENCOUNTER 2018-06-27 12:24 | Emergency (ER) | payer OTHER ==
[2018-06-27 12:39] VITALS: O2SAT 100
--- NOTE | 2018-06-27 12:59 | ERPHSYRPT ---
- History of Present Illness Time Seen by Provider: 06/27/18 12:54 Historian: patient Exam Limitations: no limitations Patient Subjective Stated Complaint: here for lower abd pain, states is a pressure type pain, no other sypmtoms Triage Nursing Assessment: pt alert, resp easy, skin w/d/p, abd soft Physician History: The patient is a 43-year-old female complaining of pressure in her lower abdomen for 3 days. She thinks it might be her urinary bladder because she is having to urinate more frequently and she has pain and she urinates. She is unsure that this may be causing her to bloat. She states she was in the [facility] in October and was told that she has gastroparesis. She was told not to eat bones with seeds, nuts, or raw vegetables. They did not prescribe any medicines for her. She also states that she might have been diagnosed with diverticulitis at one time. For the past 3 days she has denied fever or chills. She did not have a bowel movement today. Her past medical history is significant for gastroparesis, diverticulitis, GERD, , cholecystectomy , appendectomy, and hysterectomy. Timing/Duration: day(s) (3), constant, gradual onset Activities at Onset: none Quality: aching, pressure Abdominal Pain Onset Location: suprapubic Pain Radiation: no radiation Severity of Pain-Max: moderate Severity of Pain-Current: moderate Modifying Factors: Improves With: nothing Associated Symptoms: denies symptoms Previous symptoms: same symptoms as today Allergies/Adverse Reactions: povidone-iodine [From Betadine] Allergy (Mild, Verified 06/27/18 12:40) rabeprazole sodium [From Aciphex] Allergy (Mild, Verified 06/27/18 12:40) Hives soap [From Betadine] Allergy (Mild, Verified 06/27/18 12:40) prochlorperazine edisylate [From Compazine] Allergy (Verified 06/27/18 12:40) ibuprofen Adverse Reaction (Verified 06/27/18 12:40) DOES NOT TAKE DUE TO STOMACHE PROBLEMS Home Medications: Gabapentin [Neurontin] 800 mg PO HS 01/14/15 [History] Cyclobenzaprine HCl [Flexeril] 5 mg PO DAILY 06/04/17 [History] Esomeprazole Magnesium [Nexium] 40 mg DAILY 06/27/18 [History] Hx Tetanus, Diphtheria Vaccination/Date Given: No Hx Influenza Vaccination/Date Given: No Hx Pneumococcal Vaccination/Date Given: No Immunizations Up to Date: Yes - Review of Systems Constitutional: No Fever, No Chills Eyes: No Symptoms Ears, Nose, & Throat: No Symptoms Respiratory: No Cough, No Dyspnea Cardiac: No Chest Pain, No Edema, No Syncope Abdominal/Gastrointestinal: Abdominal Pain (suprapubic), No Nausea, No Vomiting , No Diarrhea Genitourinary Symptoms: Dysuria, Frequency, Urgency Musculoskeletal: No Back Pain, No Neck Pain Skin: No Rash Neurological: No Dizziness, No Focal Weakness, No Sensory Changes Psychological: No Symptoms Endocrine: No Symptoms Hematologic/Lymphatic: No Symptoms Immunological/Allergic: No Symptoms All Other Systems: Reviewed and Negative - Past Medical History Pertinent Past Medical History: Yes Neurological History: Migraines ENT History: Other Cardiac History: No Pertinent History Respiratory History: No Pertinent History Endocrine Medical History: No Pertinent History Musculoskeletal History: Arthritis, Fibromyalgia, Other GI Medical History: GERD, Other History: No Pertinent History Psycho-Social History: No Pertinent History Female Reproductive Disorders: No Pertinent History Other Medical History: ESOPHAGUS NEEDS DILATED EVERY ONCE IN AWHILE, , LORDOSIS , SCOLIOSIS, gastroporhesis - Past Surgical History Past Surgical History: Yes Neuro Surgical History: No Pertinent History Cardiac: No Pertinent History Respiratory: No Pertinent History Gastrointestinal: Appendectomy, Cholecystectomy, Colon Resection Genitourinary: No Pertinent History Musculoskeletal: Orthopedic Surgery Female Surgical History: Section, Hysterectomy Other Surgical History: esophageal dilitation, rotator cuff repair - Social History Smoking Status: Never smoker Exposure to second hand smoke: No Drug Use: none Patient Lives Alone: No Significant Family History: other (immune diseases such as lupus,etc.) - Female History Hx Last Menstrual Period: hyster Hx Now: No - Nursing Vital Signs Nursing Vital Signs: Initial Vital Signs Temperature 97.8 F 06/27/18 12:28 Pulse Rate 84 06/27/18 12:28 Respiratory Rate 16 06/27/18 12:28 Blood Pressure 148/92 06/27/18 12:28 O2 Sat by Pulse Oximetry 100 06/27/18 12:28 Pain Scale Pain Intensity 8 - Physical Exam General Appearance: no apparent distress, alert Eye Exam: PERRL/EOMI, eyes nml inspection Ears, Nose, Throat Exam: normal ENT inspection, pharynx normal, moist mucous membranes Neck Exam: normal inspection, non-tender, supple, full range of motion Respiratory Exam: normal breath sounds, lungs clear, No respiratory distress Cardiovascular Exam: regular rate/rhythm, normal heart sounds Gastrointestinal/Abdomen Exam: distention, other (typanitic, hyperactive BS), No tenderness Pelvic Exam: not done Rectal Exam: not done Back Exam: normal inspection, normal range of motion, No CVA tenderness, No vertebral tenderness Extremity Exam: normal inspection, normal range of motion, pelvis stable Neurologic Exam: alert, oriented x 3, cooperative, normal mood/affect, nml cerebellar function, sensation nml, No motor deficits Skin Exam: normal color, warm, dry SpO2 Interpretation: normal SpO2: 100 Oxygen Delivery: Room Air - Radiology Exams Abdomen X-ray Interpretation: Reviewed by me, Teleradiologist Report (per Dr Cano), Negative, Other (fecal stasis without obstruction.) Ordered Tests: Active Orders 24 hr Category Date Time Status Clean Catch Urine Specimen STAT Care 06/27/18 13:16 Active OBSTR/ACUTE ABDOMEN SERIES Stat Exams 06/27/18 13:57 Completed CBC W DIFF Stat Lab 06/27/18 13:30 Completed CMP Stat Lab 06/27/18 13:30 Completed LIPASE Stat Lab 06/27/18 13:30 Completed Lactic Acid Stat Lab 06/27/18 13:16 Completed UA W/RFX UR CULTURE Stat Lab 06/27/18 13:30 Completed Lab/Rad Data: Laboratory Result Diagrams 06/27/18 13:30 06/27/18 13:30 Laboratory Results 06/27/18 06/27/18 06/27/18 Range/Units 13:30 13:30 13:30 WBC 5.2 (4.0-10.5) K/mm3 RBC 4.01 L (4.1-5.4) M/mm3 Hgb 11.7 L (12.0-16.0) gm/dl Hct 35.6 (35-47) % MCV 88.8 (78-100) fl MCH 29.1 (26-32) pg MCHC 32.9 (32-36) g/dl RDW 13.2 (11.5-14.0) % Plt Count 260 (150-450) K/mm3 MPV 8.9 (6-9.5) fl Gran % 51.6 (36.0-66.0) % Eos # (Auto) 0.15 (0-0.5) Absolute Lymphs (auto) 1.83 (1.0-4.6) Absolute Monos (auto) 0.54 (0.0-1.3) Lymphocytes % 35.0 (24.0-44.0) % Monocytes % 10.3 (0.0-12.0) % Eosinophils % 2.9 (0.00-5.0) % Basophils % 0.2 (0.0-0.4) % Absolute Granulocytes 2.70 (1.4-6.9) Basophils # 0.01 (0-0.4) Sodium 141 (137-145) mmol/L Potassium 3.9 (3.5-5.1) mmol/L Chloride 102 (98-107) mmol/L Carbon Dioxide 29 (22-30) mmol/L Anion Gap 12.8 (5-15) MEQ/L BUN 9 (7-17) mg/dL Creatinine 0.66 (0.52-1.04) mg/dL Estimated GFR > 60.0 ML/MIN Glucose 118 H (74-106) mg/dL Lactic Acid (0.4-2.0) Calcium 8.7 (8.4-10.2) mg/dL Total Bilirubin 0.20 (0.2-1.3) mg/dL AST 27 (14-36) U/L ALT 19 (0-35) U/L Alkaline Phosphatase 62 (38-126) U/L Serum Total Protein 7.2 (6.3-8.2) g/dL Albumin 4.3 (3.5-5.0) g/dL Lipase 127 (23-300) U/L Urine Color YELLOW (YELLOW) Urine Appearance CLEAR (CLEAR) Urine pH 6.0 (5-6) Ur Specific [place] 1.009 (1.005-1.025) Urine Protein NEGATIVE (Negative) Urine Ketones NEGATIVE (NEGATIVE) Urine Blood NEGATIVE (0-5) Mickey/ul Urine Nitrite NEGATIVE (NEGATIVE) Urine Bilirubin NEGATIVE (NEGATIVE) Urine Urobilinogen NEGATIVE (0-1) mg/dL Ur Leukocyte Esterase NEGATIVE (NEGATIVE) Urine WBC (Auto) NONE (0-5) /HPF Urine RBC (Auto) NONE (0-2) /HPF U Epithel Cells (Auto) NONE (FEW) /HPF Urine Bacteria (Auto) NONE (NEGATIVE) /HPF Urine Mucus (Auto) SLIGHT (NEGATIVE) /HPF Urine Culture Reflexed NO (NO) Urine Glucose NEGATIVE (NEGATIVE) mg/dL 06/27/18 Range/Units 13:16 WBC (4.0-10.5) K/mm3 RBC (4.1-5.4) M/mm3 Hgb (12.0-16.0) gm/dl Hct (35-47) % MCV (78-100) fl MCH (26-32) pg MCHC (32-36) g/dl RDW (11.5-14.0) % Plt Count (150-450) K/mm3 MPV (6-9.5) fl Gran % (36.0-66.0) % Eos # (Auto) (0-0.5) Absolute Lymphs (auto) (1.0-4.6) Absolute Monos (auto) (0.0-1.3) Lymphocytes % (24.0-44.0) % Monocytes % (0.0-12.0) % Eosinophils % (0.00-5.0) % Basophils % (0.0-0.4) % Absolute Granulocytes (1.4-6.9) Basophils # (0-0.4) Sodium (137-145) mmol/L Potassium (3.5-5.1) mmol/L Chloride (98-107) mmol/L Carbon Dioxide (22-30) mmol/L Anion Gap (5-15) MEQ/L BUN (7-17) mg/dL Creatinine (0.52-1.04) mg/dL Estimated GFR ML/MIN Glucose (74-106) mg/dL Lactic Acid 1.1 (0.4-2.0) Calcium (8.4-10.2) mg/dL Total Bilirubin (0.2-1.3) mg/dL AST (14-36) U/L ALT (0-35) U/L Alkaline Phosphatase (38-126) U/L Serum Total Protein (6.3-8.2) g/dL Albumin (3.5-5.0) g/dL Lipase (23-300) U/L Urine Color (YELLOW) Urine Appearance (CLEAR) Urine pH (5-6) Ur Specific [place] (1.005-1.025) Urine Protein (Negative) Urine Ketones (NEGATIVE) Urine Blood (0-5) Mickey/ul Urine Nitrite (NEGATIVE) Urine Bilirubin (NEGATIVE) Urine Urobilinogen (0-1) mg/dL Ur Leukocyte Esterase (NEGATIVE) Urine WBC (Auto) (0-5) /HPF Urine RBC (Auto) (0-2) /HPF U Epithel Cells (Auto) (FEW) /HPF Urine Bacteria (Auto) (NEGATIVE) /HPF Urine Mucus (Auto) (NEGATIVE) /HPF Urine Culture Reflexed (NO) Urine Glucose (NEGATIVE) mg/dL - Progress Progress: unchanged Counseled pt/family regarding: lab results, diagnosis, need for follow-up, rad results - Departure Time of Disposition: 15:29 Departure Disposition: Home Clinical Impression: Constipation Condition: Stable Critical Care Time: No Referrals: JAYLAN GREEN MD [Primary Care Provider] - Additional Instructions: You have some constipation today that is causing your abdominal pain and bloating. Your urinalysis was normal. Take either milk of magnesia 2 tablespoons before going to bed or drink one bottle of magnesium citrate. These will help you clear your bowels. Follow-up as needed.
[2018-06-27 13:43] LABS: Appearance CLEAR (CLEAR); Bilirubin NEGATIVE (NEGATIVE); Blood NEGATIVE Ery/ul (0-5); Glucose NEGATIVE (NEGATIVE); Ketones NEGATIVE (NEGATIVE); Leukocyte Esterase NEGATIVE (NEGATIVE); Nitrite NEGATIVE (NEGATIVE); Protein,Urine Dip NEGATIVE (Negative); Specific Gravity 1.009 (1.005-1.025); Urobilinogen NEGATIVE mg/dL (0-1)
[2018-06-27 13:53] LABS: ALBUMIN 4.3 g/dL (3.5-5.0); ALKALINE PHOSPHATASE 62 U/L (38-126); ANION GAP 12.8 MEQ/L (5-15); BLOOD UREA NITROGEN 9 mg/dL (7-17); CHLORIDE 102 mmol/L (98-107); Calcium 8.7 mg/dL (8.4-10.2); Carbon Dioxide 29 mmol/L (22-30); Creatinine 1 0.66 mg/dL (0.52-1.04); Glucose 118 mg/dL (74-106); LIPASE 127 U/L (23-300); Potassium 3.9 mmol/L (3.5-5.1); SGOT/AST 27 U/L (14-36); SGPT/ALT 19 U/L (0-35); SODIUM 141 mmol/L (137-145); Total Protein 7.2 g/dL (6.3-8.2)
[2018-06-27 14:02] LABS: BASOPHIL % 0.2 % (0.0-0.4); Basophil (Absolute #) 0.01 (0-0.4); Eosinophil % 2.9 % (0.00-5.0); Eosinophil (Absolute #) 0.15 (0-0.5); Granulocytes % 51.6 % (36.0-66.0); Hematocrit 35.6 % (35-47); Hemoglobin 11.7 gm/dl (12.0-16.0); Lymphocyte (Absolute #) 1.83 (1.0-4.6); Mean Cell Volume 88.8 fl (78-100); Mean Corpuscular Hgb Concent. 32.9 g/dl (32-36); Mean Platelet Volume 8.9 fl (6-9.5); Monocyte (Absolute #) 0.54 (0.0-1.3); Monocytes % 10.3 % (0.0-12.0); Platelet Count 260 K/mm3 (150-450); Red Blood Count 4.01 M/mm3 (4.1-5.4); Red Cell Distribution Width 13.2 % (11.5-14.0); White Blood Count 5.2 K/mm3 (4.0-10.5)
[2018-06-27 14:03] LABS: Mean Corpuscular Hemoglobin 29.1 pg (26-32)
--- NOTE | 2018-06-27 14:32 | XRAY ---
Indication: Abdomen and bladder pain. Bloating. Comparison: Chest exam July 26, 2017. 2 views of the abdomen demonstrates mild diffuse scattered colonic fecal debris throughout. No obstruction or focal bowel dilatation. Right upper quadrant and pelvic surgical clips. Remaining solid organs and osseous structures unremarkable. Single PA chest again demonstrates normal heart, lungs, and bony thorax. Impression: Fecal stasis without obstruction. Stable normal 1 view chest.
[2018-06-27 15:45] VITALS: BP 126/82; PULSE 73
== END 2018-06-27 15:45 | disposition home or self-care (01) ==
LOC: ED 12:24
DX: K59.00 Constipation, unspecified (principal); R10.30 Lower abdominal pain, unspecified; Z79.899 Other long term (current) drug therapy
CPT/HCPCS: 36415; 74022; 80053; 81001; 83605; 83690; 85025; 99284

== ENCOUNTER 2019-02-16 10:06 | Emergency (ER) | payer OTHER ==
[2019-02-16] MEDS ORDERED: PROTONIX 40 MG IV IV ONE (10:27)
[2019-02-16] MEDS ORDERED: Sodium Chloride 0.9% 1000 ML 1,000 ML IV STA (10:27)
--- NOTE | 2019-02-16 10:30 | ERPHSYRPT ---
- History of Present Illness Time Seen by Provider: 02/16/19 10:28 Historian: patient Exam Limitations: no limitations Patient Subjective Stated Complaint: states abd pain since last sunday after eating at [id number]. also has headache Triage Nursing Assessment: ambulated to room per self. skin w/d, color normal, resp easy. holding mid abd. Physician History: 43-year-old female came to the emergency room with complaining of generalized malaise, abdominal pain, and generalized soreness in the abdomen after eating at [employer] yesterday. She has been nauseated and has been feeling ready weak. She is complaining of abdominal pain all over the belly. Timing/Duration: yesterday Abdominal Pain Onset Location: generalized abdomen Pain Radiation: no radiation Severity of Pain-Max: mild Severity of Pain-Current: mild Associated Symptoms: weakness, other (headache) Allergies/Adverse Reactions: povidone-iodine [From Betadine] Allergy (Mild, Verified 02/16/19 10:29) rabeprazole sodium [From Aciphex] Allergy (Mild, Verified 02/16/19 10:29) Hives soap [From Betadine] Allergy (Mild, Verified 02/16/19 10:29) prochlorperazine edisylate [From Compazine] Allergy (Verified 02/16/19 10:29) ibuprofen Adverse Reaction (Verified 02/16/19 10:29) DOES NOT TAKE DUE TO STOMACHE PROBLEMS Home Medications: Gabapentin [Neurontin] 800 mg PO HS 01/14/15 [History] Cyclobenzaprine HCl [Flexeril] 5 mg PO HS 06/04/17 [History] Esomeprazole Magnesium [Nexium] 40 mg DAILY 06/27/18 [History] Montelukast Sodium 10 mg [Singulair 10 MG] 10 mg PO QPM 02/16/19 [History] Hx Tetanus, Diphtheria Vaccination/Date Given: No Hx Influenza Vaccination/Date Given: No Hx Pneumococcal Vaccination/Date Given: No - Review of Systems Constitutional: Weakness, No Fever, No Chills Eyes: No Symptoms Ears, Nose, & Throat: No Symptoms Respiratory: No Cough, No Dyspnea Cardiac: No Chest Pain, No Edema, No Syncope Abdominal/Gastrointestinal: No Abdominal Pain, No Nausea, No Vomiting, No Diarrhea Genitourinary Symptoms: No Dysuria Musculoskeletal: No Back Pain, No Neck Pain Skin: No Rash Neurological: Headache, No Dizziness, No Focal Weakness, No Sensory Changes Psychological: No Symptoms Endocrine: No Symptoms All Other Systems: Reviewed and Negative - Past Medical History Pertinent Past Medical History: Yes Neurological History: Migraines ENT History: Other Cardiac History: No Pertinent History Respiratory History: No Pertinent History Endocrine Medical History: No Pertinent History Musculoskeletal History: Arthritis, Fibromyalgia GI Medical History: GERD, Other History: No Pertinent History Psycho-Social History: No Pertinent History Female Reproductive Disorders: No Pertinent History Other Medical History: GASTROPARESIS - Past Surgical History Past Surgical History: Yes Neuro Surgical History: No Pertinent History Cardiac: No Pertinent History Respiratory: No Pertinent History Gastrointestinal: Appendectomy, Cholecystectomy, Colon Resection Genitourinary: No Pertinent History Musculoskeletal: Orthopedic Surgery Female Surgical History: Section, Hysterectomy Other Surgical History: esophageal dilitation, rotator cuff repair - Social History Smoking Status: Never smoker Exposure to second hand smoke: No Drug Use: none Patient Lives Alone: No Significant Family History: other (immune diseases such as lupus,etc.) - Female History Hx Now: No - Nursing Vital Signs Nursing Vital Signs: Initial Vital Signs Temperature 97.7 F 02/16/19 10:12 Pulse Rate 74 02/16/19 10:12 Respiratory Rate 16 02/16/19 10:12 Blood Pressure 178/94 02/16/19 10:12 O2 Sat by Pulse Oximetry 100 02/16/19 10:12 Pain Scale Pain Intensity 5 - Physical Exam General Appearance: no apparent distress, alert Eye Exam: PERRL/EOMI, eyes nml inspection Ears, Nose, Throat Exam: normal ENT inspection, pharynx normal, moist mucous membranes Neck Exam: normal inspection, non-tender, supple, full range of motion Respiratory Exam: normal breath sounds, lungs clear, No respiratory distress Cardiovascular Exam: regular rate/rhythm, normal heart sounds Gastrointestinal/Abdomen Exam: soft, No tenderness, No mass Back Exam: normal inspection, normal range of motion, No CVA tenderness, No vertebral tenderness Extremity Exam: normal inspection, normal range of motion, pelvis stable Neurologic Exam: alert, oriented x 3, cooperative, normal mood/affect, nml cerebellar function, sensation nml, No motor deficits Skin Exam: normal color, warm, dry SpO2: 100 - Course Nursing assessment & vital signs reviewed: Yes Ordered Tests: Active Orders 24 hr Category Date Time Status AMYLASE Stat Lab 02/16/19 10:36 Received CBC W DIFF Stat Lab 02/16/19 10:36 Completed CMP Stat Lab 02/16/19 10:36 Received LIPASE Stat Lab 02/16/19 10:36 Received UA W/RFX UR CULTURE Stat Lab 02/16/19 10:29 Completed Medication Summary Generic Name Dose Route Start Last Admin Trade Name Freq PRN Reason Stop Dose Admin Sodium Chloride 1,000 mls @ 999 mls/hr 02/16/19 10:27 02/16/19 10:44 Sodium Chloride 0.9% 1000 Ml IV 02/16/19 11:27 999 mls/hr .Q1H1M STA Administration Discontinued Medications Generic Name Dose Route Start Last Admin Trade Name Freq PRN Reason Stop Dose Admin Famotidine 20 mg 02/16/19 10:40 02/16/19 10:44 Pepcid 20 Mg Vial IV 02/16/19 10:41 20 mg STAT ONE Administration Famotidine Confirm 02/16/19 10:41 Pepcid 20 Mg Vial Administered 02/16/19 10:42 Dose 20 mg IV .STK-MED ONE Sodium Chloride Confirm 02/16/19 10:38 Sodium Chloride 0.9% 1000 Ml Administered 02/16/19 10:39 Dose 1,000 mls @ ud .ROUTE .STK-MED ONE Pantoprazole Sodium 40 mg 02/16/19 10:27 02/16/19 10:49 Protonix 40 Mg Iv IV 02/16/19 10:28 Not Given STAT ONE Lab/Rad Data: Laboratory Result [facility] 02/16/19 10:36 Laboratory Results 02/16/19 02/16/19 Range/Units 10:36 10:29 WBC 7.2 (4.0-10.5) K/mm3 RBC 4.31 (4.1-5.4) M/mm3 Hgb 12.8 (12.0-16.0) gm/dl Hct 38.3 (35-47) % MCV 88.9 (78-100) fl MCH 29.7 (26-32) pg MCHC 33.4 (32-36) g/dl RDW 12.7 (11.5-14.0) % Plt Count 237 (150-450) K/mm3 MPV 8.4 (6-9.5) fl Gran % 64.6 (36.0-66.0) % Eos # (Auto) 0.14 (0-0.5) Absolute Lymphs (auto) 1.84 (1.0-4.6) Absolute Monos (auto) 0.56 (0.0-1.3) Lymphocytes % 25.6 (24.0-44.0) % Monocytes % 7.8 (0.0-12.0) % Eosinophils % 1.9 (0.00-5.0) % Basophils % 0.1 (0.0-0.4) % Absolute Granulocytes 4.63 (1.4-6.9) Basophils # 0.01 (0-0.4) Urine Color YELLOW (YELLOW) Urine Appearance CLEAR (CLEAR) Urine pH 5.0 (5-6) Ur Specific [place] 1.014 (1.005-1.025) Urine Protein NEGATIVE (Negative) Urine Ketones NEGATIVE (NEGATIVE) Urine Blood SMALL (0-5) Mickey/ul Urine Nitrite NEGATIVE (NEGATIVE) Urine Bilirubin NEGATIVE (NEGATIVE) Urine Urobilinogen NEGATIVE (0-1) mg/dL Ur Leukocyte Esterase NEGATIVE (NEGATIVE) Urine WBC (Auto) NONE (0-5) /HPF Urine RBC (Auto) NONE (0-2) /HPF U Epithel Cells (Auto) NONE (FEW) /HPF Urine Bacteria (Auto) NONE (NEGATIVE) /HPF Urine Mucus (Auto) SLIGHT (NEGATIVE) /HPF Urine Culture Reflexed NO (NO) Urine Glucose NEGATIVE (NEGATIVE) mg/dL - Progress Progress: improved Counseled pt/family regarding: lab results, diagnosis, need for follow-up - Departure Departure Disposition: Home Clinical Impression: Dyspepsia and disorder of function of stomach, Potential for food poisoning Condition: Stable Critical Care Time: No Referrals: JAYALN GREEN MD [Primary Care Provider] - Instructions: Food Poisoning Additional Instructions: Discharge/Care Plan CHANO SALAZAR was seen on 02/16/19 in the Emergency Room. The patient was counseled regarding Diagnosis,Lab results, Imaging studies, need for follow up and when to return to the Emergency Room. Prescriptions given: Discharge Note I have spoken with the patient and/or caregivers. I have explained the patient' s condition, diagnosis and treatment plan based on the information available to me at this time. I have answered the patient's and/or caregiver's questions and addressed any concerns. The patient and/or caregivers have as good understanding of the patient's diagnosis, condition and treatment plan as can be expected at this point. The vital signs have been stable. The patient's condition is stable and appropriate for discharge from the emergency department. The patient will pursue further outpatient evaluation with the primary care physician or other designated or consulting physician as outlined in the discharge instructions. The patient and/or caregivers are agreeable to this plan of care and follow-up instructions have been explained in detail. The patient and/or caregivers have received these instruction. The patient/and or caregivers are aware that any significant change in condition or worsening of symptoms should prompt an immediate return to this or the closest emergency department or call 911.
[2019-02-16] MEDS ORDERED: Sodium Chloride 0.9% 1000 ML 1,000 ML ONE (10:38)
[2019-02-16] MEDS ORDERED: Pepcid 20 MG VIAL IV ONE ×2 (10:40→10:41)
[2019-02-16 10:43] LABS: BASOPHIL % 0.1 % (0.0-0.4); Basophil (Absolute #) 0.01 (0-0.4); Eosinophil % 1.9 % (0.00-5.0); Eosinophil (Absolute #) 0.14 (0-0.5); Granulocyte Absolute (ANC) 4.63 (1.4-6.9); Granulocytes % 64.6 % (36.0-66.0); Hematocrit 38.3 % (35-47); Hemoglobin 12.8 gm/dl (12.0-16.0); Lymphocyte (Absolute #) 1.84 (1.0-4.6); Lymphocytes % 25.6 % (24.0-44.0); Mean Cell Volume 88.9 fl (78-100); Mean Corpuscular Hemoglobin 29.7 pg (26-32); Mean Corpuscular Hgb Concent. 33.4 g/dl (32-36); Mean Platelet Volume 8.4 fl (6-9.5); Monocytes % 7.8 % (0.0-12.0); Platelet Count 237 K/mm3 (150-450); Red Blood Count 4.31 M/mm3 (4.1-5.4); Red Cell Distribution Width 12.7 % (11.5-14.0); White Blood Count 7.2 K/mm3 (4.0-10.5)
[2019-02-16 10:46] LABS: Appearance CLEAR (CLEAR); Bilirubin NEGATIVE (NEGATIVE); Blood SMALL Ery/ul (0-5); Glucose NEGATIVE (NEGATIVE); Ketones NEGATIVE (NEGATIVE); Leukocyte Esterase NEGATIVE (NEGATIVE); Mucus SLIGHT /HPF (NEGATIVE); Nitrite NEGATIVE (NEGATIVE); Protein,Urine Dip NEGATIVE (Negative); Specific Gravity 1.014 (1.005-1.025); Urobilinogen NEGATIVE mg/dL (0-1)
[2019-02-16 10:52] LABS: ALBUMIN 4.5 g/dL (3.5-5.0); ALKALINE PHOSPHATASE 59 U/L (38-126); AMYLASE 87 U/L (30-110); ANION GAP 13.9 MEQ/L (5-15); BLOOD UREA NITROGEN 10 mg/dL (7-17); CHLORIDE 104 mmol/L (98-107); Calcium 9.4 mg/dL (8.4-10.2); Carbon Dioxide 27 mmol/L (22-30); Creatinine 1 0.61 mg/dL (0.52-1.04); Glucose 99 mg/dL (74-106); LIPASE 151 U/L (23-300); Potassium 3.9 mmol/L (3.5-5.1); SGOT/AST 20 U/L (14-36); SGPT/ALT 16 U/L (0-35); SODIUM 141 mmol/L (137-145); Total Protein 7.6 g/dL (6.3-8.2)
[2019-02-16 12:05] VITALS: BP 156/92; PULSE 70; O2SAT 97
== END 2019-02-16 12:03 | disposition home or self-care (01) ==
LOC: ED 10:06
DX: R10.13 Epigastric pain (principal); K31.89 Other diseases of stomach and duodenum; R11.0 Nausea
CPT/HCPCS: 36000; 36415; 80053; 81001; 82150; 83690; 85025; 96360; 96374; 99284

== ENCOUNTER 2020-04-11 09:25 | Emergency (ER) | payer OTHER ==
--- NOTE | 2020-04-11 09:57 | ERPHSYRPT ---
- History of Present Illness Time Seen by Provider: 04/11/20 09:55 Source: patient Exam Limitations: no limitations Patient Subjective Stated Complaint: sorethroat Triage Nursing Assessment: pt to ED c/o sorethroat and body aches x 1 day. states she hurts all over 5/10. afebrile on arrival. also c/o congestion in chest, heart sounds clear, lung sounds clear. reports occasional cough, non productive. no SOB or diff breathing. denies known COVID exposure. Physician History: sore throat for 1 day. c/o sore throat and body aches x 1 day. states she hurts all over 5/10. afebrile on arrival. also c/o congestion in chest, Timing/Duration: yesterday Cough Quality/Degree: mild Possible Cause: no prior episodes Associated Symptoms: cough, headache, muscle aches, shortness of breath, sore throat Allergies/Adverse Reactions: povidone-iodine [From Betadine] Allergy (Mild, Verified 02/16/19 10:29) rabeprazole sodium [From Aciphex] Allergy (Mild, Verified 02/16/19 10:29) Hives soap [From Betadine] Allergy (Mild, Verified 02/16/19 10:29) prochlorperazine edisylate [From Compazine] Allergy (Verified 02/16/19 10:29) ibuprofen Adverse Reaction (Verified 02/16/19 10:29) DOES NOT TAKE DUE TO STOMACHE PROBLEMS Home Medications: Gabapentin [Neurontin] 800 mg PO HS 01/14/15 [History] Cyclobenzaprine HCl [Flexeril] 5 mg PO HS 06/04/17 [History] Esomeprazole Magnesium [Nexium] 40 mg DAILY 06/27/18 [History] Montelukast Sodium 10 mg [Singulair 10 MG] 10 mg PO QPM 02/16/19 [History] Hx Tetanus, Diphtheria Vaccination/Date Given: Yes Hx Influenza Vaccination/Date Given: Yes Hx Pneumococcal Vaccination/Date Given: No Immunizations Up to Date: Yes Travel Risk - International Travel Have you traveled outside of the country in past 3 weeks: No - Coronavirus Screening Are you exhibiting any of the following symptoms?: Yes Symptoms: Cough: New Onset, Shortness of Breath, Headaches/Body Aches/Fatigue Close contact with a COVID-19 positive Pt in past 14-21 Days: No - Review of Systems Constitutional: Malaise, Weakness, No Fever, No Chills Eyes: No Symptoms Ears, Nose, & Throat: No Symptoms Respiratory: Cough, Dyspnea Cardiac: No Chest Pain, No Edema, No Syncope Abdominal/Gastrointestinal: No Abdominal Pain, No Nausea, No Vomiting, No Diarrhea Genitourinary Symptoms: No Dysuria Musculoskeletal: No Back Pain, No Neck Pain Skin: No Rash Neurological: No Dizziness, No Focal Weakness, No Sensory Changes Psychological: No Symptoms Endocrine: No Symptoms All Other Systems: Reviewed and Negative - Past Medical History Pertinent Past Medical History: Yes Neurological History: Migraines ENT History: Other Cardiac History: No Pertinent History Respiratory History: No Pertinent History Endocrine Medical History: No Pertinent History Musculoskeletal History: Arthritis, Fibromyalgia GI Medical History: GERD, Other History: No Pertinent History Psycho-Social History: No Pertinent History Female Reproductive Disorders: No Pertinent History Other Medical History: GASTROPARESIS - Past Surgical History Past Surgical History: Yes Neuro Surgical History: No Pertinent History Cardiac: No Pertinent History Respiratory: No Pertinent History Gastrointestinal: Appendectomy, Cholecystectomy, Colon Resection Genitourinary: No Pertinent History Musculoskeletal: Orthopedic Surgery Female Surgical History: Section, Hysterectomy Other Surgical History: esophageal dilitation, rotator cuff repair - Social History Smoking Status: Never smoker Exposure to second hand smoke: No Drug Use: none Patient Lives Alone: No Significant Family History: other (immune diseases such as lupus,etc.) - Female History Hx Now: No - Nursing Vital Signs Nursing Vital Signs: Pain Scale Pain Intensity 5 - Physical Exam General Appearance: no apparent distress, alert Eye Exam: PERRL/EOMI, eyes nml inspection Ears, Nose, Throat Exam: normal ENT inspection, TMs normal, pharynx normal, moist mucous membranes Neck Exam: normal inspection, non-tender, supple, full range of motion Respiratory Exam: normal breath sounds, lungs clear, No respiratory distress Cardiovascular Exam: regular rate/rhythm, normal heart sounds Gastrointestinal/Abdomen Exam: soft, No tenderness Back Exam: normal inspection, No CVA tenderness, No vertebral tenderness Extremity Exam: normal inspection, normal range of motion Neurologic Exam: alert, oriented x 3, cooperative, normal mood/affect, sensation nml, No motor deficits Skin Exam: normal color, warm, dry, No rash Lymphatic Exam: No adenopathy Ordered Tests: Active Orders 24 hr Category Date Time Status CHEST 1 VIEW (PORTABLE) Stat Exams 04/11/20 09:53 Taken CBC W DIFF Stat Lab 04/11/20 10:20 Completed CMP Stat Lab 04/11/20 10:20 Completed Lab/Rad Data: Laboratory Result Diagrams 04/11/20 10:20 04/11/20 10:20 Laboratory Results 04/11/20 04/11/20 Range/Units 10:20 10:20 WBC 5.2 (4.0-10.5) K/mm3 RBC 4.28 (4.1-5.4) M/mm3 Hgb 12.5 (12.0-16.0) gm/dl Hct 38.7 (35-47) % MCV 90.4 (78-100) fl MCH 29.2 (26-32) pg MCHC 32.3 (32-36) g/dl RDW 13.5 (11.5-14.0) % Plt Count 272 (150-450) K/mm3 MPV 8.9 (7.5-11.0) fl Gran % 50.9 (36.0-66.0) % Eos # (Auto) 0.11 (0-0.5) Absolute Lymphs (auto) 1.85 (1.0-4.6) Absolute Monos (auto) 0.58 (0.0-1.3) Lymphocytes % 35.5 (24.0-44.0) % Monocytes % 11.1 (0.0-12.0) % Eosinophils % 2.1 (0.00-5.0) % Basophils % 0.4 (0.0-0.4) % Absolute Granulocytes 2.65 (1.4-6.9) Basophils # 0.02 (0-0.4) Sodium 141 (137-145) mmol/L Potassium 4.0 (3.5-5.1) mmol/L Chloride 106 (98-107) mmol/L Carbon Dioxide 27 (22-30) mmol/L Anion Gap 11.5 (5-15) MEQ/L BUN 10 (7-17) mg/dL Creatinine 0.62 (0.52-1.04) mg/dL Estimated GFR > 60.0 ML/MIN Glucose 96 (74-106) mg/dL Calcium 9.1 (8.4-10.2) mg/dL Total Bilirubin 0.40 (0.2-1.3) mg/dL AST 19 (14-36) U/L ALT 11 (0-35) U/L Alkaline Phosphatase 56 (38-126) U/L Serum Total Protein 7.3 (6.3-8.2) g/dL Albumin 4.4 (3.5-5.0) g/dL - Progress Progress: improved Air Movement: good Blood Culture(s) Obtained: No Antibiotics given: No Counseled pt/family regarding: lab results, diagnosis, need for follow-up, rad results - Departure Departure Disposition: Home Clinical Impression: Myalgia, Sore throat (viral), Suspected COVID-19 virus infection Condition: Stable Critical Care Time: No Referrals: JAYLAN GREEN MD [Primary Care Provider] - Instructions: Viral Pharyngitis (DC), Coronavirus Disease 2019 (COVID-19) (DC) Prescriptions: Azithromycin [Zithromax] 250 mg PO UD #6 tablet
[2020-04-11 10:27] LABS: Absolute Neutrophil Ct (ANC) 2.65 (1.4-6.9); BASOPHIL % 0.4 % (0.0-0.4); Basophil (Absolute #) 0.02 (0-0.4); Eosinophil % 2.1 % (0.00-5.0); Eosinophil (Absolute #) 0.11 (0-0.5); Hematocrit 38.7 % (35-47); Hemoglobin 12.5 gm/dl (12.0-16.0); Lymphocyte (Absolute #) 1.85 (1.0-4.6); Lymphocytes % 35.5 % (24.0-44.0); Mean Cell Volume 90.4 fl (78-100); Mean Corpuscular Hemoglobin 29.2 pg (26-32); Mean Corpuscular Hgb Concent. 32.3 g/dl (32-36); Mean Platelet Volume 8.9 fl (7.5-11.0); Monocyte (Absolute #) 0.58 (0.0-1.3); Monocytes % 11.1 % (0.0-12.0); Neutrophil % 50.9 % (36.0-66.0); Platelet Count 272 K/mm3 (150-450); Red Blood Count 4.28 M/mm3 (4.1-5.4); Red Cell Distribution Width 13.5 % (11.5-14.0); White Blood Count 5.2 K/mm3 (4.0-10.5)
[2020-04-11 10:32] LABS: ALBUMIN 4.4 g/dL (3.5-5.0); ALKALINE PHOSPHATASE 56 U/L (38-126); ANION GAP 11.5 MEQ/L (5-15); BLOOD UREA NITROGEN 10 mg/dL (7-17); CHLORIDE 106 mmol/L (98-107); Calcium 9.1 mg/dL (8.4-10.2); Carbon Dioxide 27 mmol/L (22-30); Creatinine 1 0.62 mg/dL (0.52-1.04); Glucose 96 mg/dL (74-106); SGOT/AST 19 U/L (14-36); SGPT/ALT 11 U/L (0-35); SODIUM 141 mmol/L (137-145); Total Protein 7.3 g/dL (6.3-8.2)
[2020-04-11 10:51] VITALS: BP 162/96; PULSE 68; O2SAT 100
--- NOTE | 2020-04-11 19:56 | XRAY ---
Indication: Short of breath. Myalgia. Comparison: June 27, 2018. Portable chest again demonstrates normal heart, lungs, and bony thorax.
== END 2020-04-11 10:56 | disposition home or self-care (01) ==
LOC: ED 09:25
DX: M79.18 Myalgia, other site (principal); J02.8 Acute pharyngitis due to other specified organisms; Z20.828 Contact with and (suspected) exposure to other viral communicable diseases; Z79.899 Other long term (current) drug therapy; R05 Cough; R51 Headache; R06.02 Shortness of breath
CPT/HCPCS: 36415; 71045; 80053; 85025; 99284; U0003

== ENCOUNTER 2022-05-19 15:25 | Emergency (ER) | payer OTHER ==
[2022-05-19] MEDS ORDERED: BABY ASPIRIN 81 MG CHEW PO ONE (15:39)
[2022-05-19] MEDS ORDERED: Pepcid 20 MG VIAL IV ONE ×2 (15:40→15:56)
[2022-05-19] MEDS ORDERED: GI COCKTAIL 45 ML (Maalox/Lidocaine) PO ONE (15:41)
[2022-05-19 15:53] LABS: Absolute Neutrophil Ct (ANC) 4.86 x10^3/uL (1.4-6.9); Basophil (Absolute #) 0.03 x10^3/uL (0-0.4); Eosinophil % 1.4 % (0.00-5.0); Eosinophil (Absolute #) 0.12 x10^3/uL (0-0.5); Hematocrit 38.8 % (35-47); Hemoglobin 13.1 g/dL (12.0-16.0); Lymphocyte (Absolute #) 2.51 x10^3/uL (1.0-4.6); Lymphocytes % 29.8 % (24.0-44.0); Mean Cell Volume 87.4 fL (78-100); Mean Corpuscular Hemoglobin 29.5 pg (26-32); Mean Corpuscular Hgb Concent. 33.8 g/dL (32-36); Mean Platelet Volume 8.9 fL (7.5-11.0); Monocyte (Absolute #) 0.87 x10^3/uL (0.0-1.3); Monocytes % 10.3 % (0.0-12.0); Neutrophil % 57.9 % (36.0-66.0); Platelet Count 320 x10^3/uL (150-450); Red Blood Count 4.44 x10^6/uL (4.1-5.4); White Blood Count 8.4 x10^3/uL (4.0-10.5)
--- NOTE | 2022-05-19 15:54 | ERPHSYRPT ---
- History of Present Illness Time Seen by Provider: 05/19/22 15:26 Historian: patient Exam Limitations: no limitations Patient Subjective Stated Complaint: C/O chest pain. Described to this nurse as heavy pressure and then described to MD as tightness. Denies radiation of pain anywhere else. Stated to this nurse that pain began yesterday then stated to MD that pain began 2 days ago. Triage Nursing Assessment: Patient is alert and oriented. No SOB noted. Skin tone normal. Physician History: 47-year-old female with history of fibromyalgia, GERD presented in the ER with 2 days history of intermittent central chest discomfort which patient described as a pressure like sensation something sitting on the center of the chest without any significant aggravating or relieving factors. Patient report since morning it is constant without any difficulty breathing. Moderate intensity, nonradiating without palpitations. [facility] here for further evaluation. Denies any history of CAD. Does have history of GERD and is out of her Nexium for the last few days. Timing/Duration: day(s) (2), intermittent, gradual onset, worse Activities at Onset: rest Quality: dullness, pressure Location: central Chest Pain Radiation: no radiation Severity of Pain-Max: moderate Severity of Pain-Current: moderate Modifying Factors: Improves With: nothing Associated Symptoms: denies symptoms Prior Chest Pain/Cardiac Workup: no prior chest pain Nitro Today/Relief: no nitro taken today Aspirin Treatment Today: no aspirin today Allergies/Adverse Reactions: povidone-iodine [From Betadine] Allergy (Mild, Verified 05/19/22 15:27) rabeprazole sodium [From Aciphex] Allergy (Mild, Verified 05/19/22 15:27) Hives soap [From Betadine] Allergy (Mild, Verified 05/19/22 15:27) prochlorperazine edisylate [From Compazine] Allergy (Verified 05/19/22 15:27) Home Medications: Gabapentin [Neurontin] 800 mg PO HS 01/14/15 [History] Cyclobenzaprine HCl [Flexeril] 5 mg PO HS 06/04/17 [History] Esomeprazole Magnesium [Nexium] 40 mg DAILY 06/27/18 [History] Hx Tetanus, Diphtheria Vaccination/Date Given: Yes Hx Influenza Vaccination/Date Given: No Hx Pneumococcal Vaccination/Date Given: Yes Immunizations Up to Date: Yes Travel Risk - International Travel Have you traveled outside of the country in past 3 weeks: No - Coronavirus Screening Are you exhibiting any of the following symptoms?: Yes Symptoms: Cough: New Onset, Headaches/Body Aches/Fatigue Close contact with a COVID-19 positive Pt in past 14-21 Days: No - Vaccine Status Have you recieved a Covid-19 vaccination: No - Review of Systems Constitutional: No Symptoms Eyes: No Symptoms Ears, Nose, & Throat: No Symptoms Respiratory: No Symptoms Cardiac: Chest Pain Abdominal/Gastrointestinal: No Symptoms Genitourinary Symptoms: No Symptoms Musculoskeletal: No Symptoms Skin: No Symptoms Neurological: No Symptoms Psychological: No Symptoms Endocrine: No Symptoms Hematologic/Lymphatic: No Symptoms Immunological/Allergic: No Symptoms - Past Medical History Pertinent Past Medical History: Yes Neurological History: Migraines ENT History: Other Cardiac History: Hypertension Respiratory History: Pneumonia Endocrine Medical History: No Pertinent History Musculoskeletal History: Arthritis, Fibromyalgia GI Medical History: GERD, Other History: No Pertinent History Psycho-Social History: No Pertinent History Female Reproductive Disorders: No Pertinent History Other Medical History: GASTROPARESIS - Past Surgical History Past Surgical History: Yes Neuro Surgical History: No Pertinent History Cardiac: No Pertinent History Respiratory: No Pertinent History Gastrointestinal: Appendectomy, Cholecystectomy, Colon Resection Genitourinary: No Pertinent History Musculoskeletal: Orthopedic Surgery Female Surgical History: Section, Hysterectomy Other Surgical History: esophageal dilitation, rotator cuff repair - Social History Smoking Status: Never smoker Exposure to second hand smoke: No Drug Use: none Patient Lives Alone: No (Fiance) Significant Family History: other (immune diseases such as lupus,etc.) - Female History Hx Last Menstrual Period: late 20s Hx Now: (UNKN) - Nursing Vital Signs Nursing Vital Signs: Initial Vital Signs Temperature 98.4 F 05/19/22 15:31 Pulse Rate 72 05/19/22 15:31 Respiratory Rate 20 05/19/22 15:31 Blood Pressure 179/96 05/19/22 15:31 O2 Sat by Pulse Oximetry 100 05/19/22 15:31 Pain Scale Pain Intensity 3 - Physical Exam General Appearance: no apparent distress, alert Eye Exam: PERRL/EOMI Ears, Nose, Throat Exam: normal ENT inspection Neck Exam: normal inspection, non-tender, supple, full range of motion Respiratory Exam: normal breath sounds, lungs clear Cardiovascular Exam: regular rate/rhythm, normal heart sounds Gastrointestinal/Abdomen Exam: soft, normal bowel sounds, No tenderness Back Exam: normal inspection, normal range of motion Extremity Exam: normal inspection, normal range of motion Neurologic Exam: alert, oriented x 3, cooperative Skin Exam: normal color SpO2 Interpretation: normal SpO2: 100 O2 Delivery: Room Air - Course EKG Interpreted by Me: RATE (74), Sinus Rhythm, NORMAL AXIS, NORMAL INTERVALS, NORMAL QRS, Other (Second EKG time 1939. Rate 7 0, rhythm sinus, normal axis, normal intervals, normal QRS) Ordered Tests: Active Orders 24 hr Category Date Time Status Roof Technician STAT Care 05/19/22 15:40 Active EKG-ER Only STAT Care 05/19/22 15:39 Active IV Insertion STAT Care 05/19/22 15:39 Active CHEST WITH CONTRAST [CT] Stat Exams 05/19/22 16:16 Completed CBC W DIFF Stat Lab 05/19/22 15:25 Completed CMP Stat Lab 05/19/22 15:25 Completed D-DIMER QUANTITATIVE Stat Lab 05/19/22 15:25 Completed HCG,QUALITATIVE URINE Stat Lab 05/19/22 16:10 Completed NT PRO BNP Stat Lab 05/19/22 15:25 Completed TROPONIN Q4H Lab 05/19/22 15:25 Completed TROPONIN Q4H Lab 05/19/22 19:51 Received TROPONIN Q4H Lab 05/19/22 23:45 Ordered Medication Summary Discontinued Medications Generic Name Dose Route Start Last Admin Trade Name Freq PRN Reason Stop Dose Admin Al Hydrox/Mg Hydrox/Simethicone Confirm 05/19/22 15:56 Mag Hydrox/Al Hydrox/Simeth 30 Ml Udcup Administered 05/19/22 15:57 Dose 30 ml .ROUTE .STK-MED ONE Aspirin 324 mg 05/19/22 15:39 05/19/22 16:01 Aspirin 81 Mg Tab.Chew PO 05/19/22 15:40 324 mg STAT ONE Administration Aspirin Confirm 05/19/22 15:56 Aspirin 81 Mg Tab.Chew Administered 05/19/22 15:57 Dose 324 mg .ROUTE .STK-MED ONE Famotidine 20 mg 05/19/22 15:40 05/19/22 16:01 Famotidine 20 Mg/1 Vial IV 05/19/22 15:41 20 mg STAT ONE Administration Famotidine Confirm 05/19/22 15:56 Famotidine 20 Mg/1 Vial Administered 05/19/22 15:57 Dose 20 mg IV .STK-MED ONE Ketorolac Tromethamine 30 mg 05/19/22 19:42 05/19/22 19:45 Ketorolac Tromethamine 30 Mg/Ml Inj IV 05/19/22 19:43 30 mg STAT ONE Administration Ketorolac Tromethamine Confirm 05/19/22 19:43 Ketorolac Tromethamine 30 Mg/Ml Inj Administered 05/19/22 19:44 Dose 30 mg .ROUTE .STK-MED ONE Lidocaine HCl Confirm 05/19/22 15:56 Lidocaine Hcl 2% Viscous 15 Ml Udcup Administered 05/19/22 15:57 Dose 15 ml .ROUTE .STK-MED ONE Magnesium Hydroxide 45 ml 05/19/22 15:41 05/19/22 16:02 Mag Hydrx/Alum Hyd/Simeth/Lido 45 Ml Bottle PO 05/19/22 15:42 45 ml STAT ONE Administration Lab/Rad Data: Laboratory Result Diagrams 05/19/22 15:25 05/19/22 15:25 Laboratory Results 05/19/22 05/19/22 05/19/22 Range/Units 16:10 15:25 15:25 WBC (4.0-10.5) x10^3/uL RBC (4.1-5.4) x10^6/uL Hgb (12.0-16.0) g/dL Hct (35-47) % MCV (78-100) fL MCH (26-32) pg MCHC (32-36) g/dL RDW (11.5-14.0) % Plt Count (150-450) x10^3/uL MPV (7.5-11.0) fL Gran % (36.0-66.0) % Immature Gran % (Auto) (0.00-0.4) % Nucleat RBC Rel Count (0.00-0.1) % Eos # (Auto) (0-0.5) x10^3/uL Immature Gran # (Auto) (0.00-0.03) x10^3u/L Absolute Lymphs (auto) (1.0-4.6) x10^3/uL Absolute Monos (auto) (0.0-1.3) x10^3/uL Absolute Nucleated RBC (0.00-0.01) x10^3u/L Lymphocytes % (24.0-44.0) % Monocytes % (0.0-12.0) % Eosinophils % (0.00-5.0) % Basophils % (0.0-0.4) % Absolute Granulocytes (1.4-6.9) x10^3/uL Basophils # (0-0.4) x10^3/uL D-Dimer 0.71 H* (0.0-0.50) mg/L Sodium (137-145) mmol/L Potassium (3.5-5.1) mmol/L Chloride (98-107) mmol/L Carbon Dioxide (22-30) mmol/L Anion Gap (5-15) MEQ/L BUN (7-17) mg/dL Creatinine (0.52-1.04) mg/dL Estimated GFR ML/MIN Glucose (74-106) mg/dL Calcium (8.4-10.2) mg/dL Total Bilirubin (0.2-1.3) mg/dL AST (14-36) U/L ALT (0-35) U/L Alkaline Phosphatase (38-126) U/L Troponin I < 0.012 (0.000-0.034) ng/mL NT-Pro-B Natriuret Pep (0-450) pg/mL Serum Total Protein (6.3-8.2) g/dL Albumin (3.5-5.0) g/dL Urine HCG, Qual NEGATIVE (Negative) 05/19/22 05/19/22 Range/Units 15:25 15:25 WBC 8.4 (4.0-10.5) x10^3/uL RBC 4.44 (4.1-5.4) x10^6/uL Hgb 13.1 (12.0-16.0) g/dL Hct 38.8 (35-47) % MCV 87.4 (78-100) fL MCH 29.5 (26-32) pg MCHC 33.8 (32-36) g/dL RDW 13.0 (11.5-14.0) % Plt Count 320 (150-450) x10^3/uL MPV 8.9 (7.5-11.0) fL Gran % 57.9 (36.0-66.0) % Immature Gran % (Auto) 0.2 (0.00-0.4) % Nucleat RBC Rel Count 0.0 (0.00-0.1) % Eos # (Auto) 0.12 (0-0.5) x10^3/uL Immature Gran # (Auto) 0.02 (0.00-0.03) x10^3u/L Absolute Lymphs (auto) 2.51 (1.0-4.6) x10^3/uL Absolute Monos (auto) 0.87 (0.0-1.3) x10^3/uL Absolute Nucleated RBC 0.00 (0.00-0.01) x10^3u/L Lymphocytes % 29.8 (24.0-44.0) % Monocytes % 10.3 (0.0-12.0) % Eosinophils % 1.4 (0.00-5.0) % Basophils % 0.4 (0.0-0.4) % Absolute Granulocytes 4.86 (1.4-6.9) x10^3/uL Basophils # 0.03 (0-0.4) x10^3/uL D-Dimer (0.0-0.50) mg/L Sodium 139 (137-145) mmol/L Potassium 3.7 (3.5-5.1) mmol/L Chloride 101 (98-107) mmol/L Carbon Dioxide 31 H (22-30) mmol/L Anion Gap 11.4 (5-15) MEQ/L BUN 10 (7-17) mg/dL Creatinine 0.66 (0.52-1.04) mg/dL Estimated GFR > 60.0 ML/MIN Glucose 88 (74-106) mg/dL Calcium 9.3 (8.4-10.2) mg/dL Total Bilirubin 0.20 (0.2-1.3) mg/dL AST 23 (14-36) U/L ALT 19 (0-35) U/L Alkaline Phosphatase 67 (38-126) U/L Troponin I (0.000-0.034) ng/mL NT-Pro-B Natriuret Pep 30.5 (0-450) pg/mL Serum Total Protein 8.0 (6.3-8.2) g/dL Albumin 4.8 (3.5-5.0) g/dL Urine HCG, Qual (Negative) - Progress Progress: improved Air Movement: good Progress Note: 05/19/22 20:47 47-year-old with history of hypertension is evaluated for central chest pain. EKG showed normal sinus rhythm with no ischemic changes at all. Negative troponins x2, ruled out PE, given GI cocktail along with Pepcid with no significant relief. Patient did not want any narcotic pain medication, given Toradol, still complaining of chest discomfort. Still having chest pain, recommended observation admission for further evaluation which she refused. Patient states "I have to leave at 9:30 PM and can try getting morphine". She is given morphine and discussed with her in detail about going home with active chest pain with worsening of condition/morbidity which could lead to acute AK which she understands but still wants to leave. Patient states "I will return to ER if has worsening of pain". Discussed in detail signs symptoms of w orsening needing return to ER which she seems understanding. Blood Culture(s) Obtained: No Antibiotics given: No Counseled pt/family regarding: lab results, diagnosis, need for follow-up, rad results - Departure Departure Disposition: Home Clinical Impression: Chest pain Condition: Stable Critical Care Time: No Referrals: JAYLAN GREEN MD [Primary Care Provider] - Follow Up with PCP/3 days ARIELLE DARDEN [CONSULTING PHYSICIAN] - Follow up/PCP as directed (Call Sunday morning for appointment for reevaluation) Instructions: Chest Pain (DC), Angina (DC) Additional Instructions: Take Tylenol as needed. Restart taking Nexium. Follow-up with primary care for reevaluation and also follow-up with cardiology. Return to ER if having persistent chest pain or worsening or if having difficulty breathing etc. Prescriptions: Sucralfate 1 gm [Carafate 1 GM] 1 g PO ACHS #20 tablet Esomeprazole Magnesium [Nexium] 40 mg PO DAILY 30 Days #30 pkt
[2022-05-19] MEDS ORDERED: BABY ASPIRIN 81 MG CHEW ONE (15:56)
[2022-05-19] MEDS ORDERED: XYLOCAINE VISCOUS 2% 15 ML CUP ONE (15:56)
[2022-05-19] MEDS ORDERED: MAALOX ES 30 ML UNIT DOSE ONE (15:56)
[2022-05-19 16:12] LABS: ALBUMIN 4.8 g/dL (3.5-5.0); ALKALINE PHOSPHATASE 67 U/L (38-126); ANION GAP 11.4 MEQ/L (5-15); BLOOD UREA NITROGEN 10 mg/dL (7-17); CHLORIDE 101 mmol/L (98-107); Calcium 9.3 mg/dL (8.4-10.2); Carbon Dioxide 31 mmol/L (22-30); Creatinine 1 0.66 mg/dL (0.52-1.04); EST GLOMERULAR FILTRATION RATE > 60.0 ML/MIN; Glucose 88 mg/dL (74-106); NT PRO BNP 30.5 pg/mL (0-450); Potassium 3.7 mmol/L (3.5-5.1); SGOT/AST 23 U/L (14-36); SGPT/ALT 19 U/L (0-35); SODIUM 139 mmol/L (137-145)
--- NOTE | 2022-05-19 18:38 | XRAY ---
Indication: Chest pain. Elevated D dimer. Multiple contiguous axial images obtained through the chest using 80 cc Isovue 370 contrast and PE protocol. Comparison: None There is good opacification of the pulmonary arteries including lobar and segmental branches. However mild respiration artifact limits evaluation of the more distal lobar and segmental branches. No central pulmonary embolus. Heart not enlarged. Aorta is normal in course and caliber. No pathologic mediastinal/hilar lymphadenopathy. Lungs demonstrates minimal bilateral dependent atelectasis and tiny calcified granuloma right upper/left lower lobe. No suspicious pulmonary mass, infiltrate, consolidation, or effusion. Bony thorax intact. Limited upper abdomen demonstrates diffuse fatty liver and cholecystectomy clips. Impression: 1. Pulmonary embolus evaluation limited by respiration artifact. No central pulmonary embolus or acute cardiopulmonary abnormalities. 2. Incidental fatty liver and evidence for old granulomatous disease.
[2022-05-19] MEDS ORDERED: TORAdol 30 mg Injection IV ONE (19:42)
[2022-05-19] MEDS ORDERED: TORAdol 30 mg Injection ONE (19:43)
[2022-05-19 20:20] VITALS: O2SAT 100
[2022-05-19 20:45] VITALS: BP 134/68; PULSE 81
[2022-05-19] MEDS ORDERED: MORPHINE SULFATE 4 MG INJ ONE (20:46)
[2022-05-19] MEDS ORDERED: MORPHINE SULFATE 4 MG INJ IV ONE (20:46)
[2022-05-19] MEDS ORDERED: Zofran 4 MG/2 ML VIAL IV ONE (20:46)
[2022-05-19] MEDS ORDERED: Zofran 4 MG/2 ML VIAL ONE (20:49)
[2022-05-19] MEDS ORDERED: Carafate SUSPENSION 1000 MG/10 ML PO ONE (20:50)
[2022-05-19] MEDS ORDERED: Carafate 1 GM PO ONE ×2 (20:56)
== END 2022-05-19 21:06 | disposition home or self-care (01) ==
LOC: ED 15:25
DX: R07.9 Chest pain, unspecified (principal); I10 Essential (primary) hypertension; Z79.899 Other long term (current) drug therapy; Z28.310 Unvaccinated for COVID-19
CPT/HCPCS: 36000; 36415; 71260; 80053; 81025; 83880; 84484; 85025; 85379; 93005; 93041; 96374; 96375; 99284; J1885; J2270; J2405; A9270-GY